=== PATIENT | female | born 1990 | race Caucasian/White ===

== ENCOUNTER 2024-04-26 15:31 | Emergency (ER) | payer OTHER, SELFPAY ==
[2024-04-26 15:46] VITALS: BP 143/102; PULSE 73; RESP 16; TEMP 36.6; O2SAT 99
--- NOTE | 2024-04-26 15:57 | ED_ITS ---
HPI - Female Genitourinary General Chief complaint: Vaginal Bleeding Stated complaint: OB told to come for emergent d&c Focused HPI: 33-year-old female presents to the emergency department for dysfunctional uterine bleeding for 35 days. Patient has been constantly bleeding for 35 days. She has been following with Dr. Louie and was planning to schedule an outpatient D and C. patient states today she bled through 5 tampons in 2 hours and has been passing quarter-size clots. She contacted Dr. Louie's office and was advised to come to the ED for admission for a D&C. She is reporting some lower abdominal cramping but denies chest pain or shortness of breath, fever, dysuria hematuria, vaginal discharge or concern for STDs. She is reporting some lightheadedness when going from sitting to standing position. No history of bleeding dyscrasias. She is not anticoagulated. GENERAL: Well-appearing, well-nourished, and in no acute distress. HEAD: Normocephalic, atraumatic. CHEST: Clear to auscultation. ?No respiratory distress. HEART: Regular rate and rhythm.? NEURO: ?Alert and oriented x3. Patient screened in triage and initial orders placed.? ?Additional care and disposition to be based upon?diagnostic testing and treatment. Related Data Home Medications ?Medication ?Instructions ?Recorded ?Confirmed ?Last Taken ?Type drospirenone 3 mg-estetrol 14.2 mg 1 tablet PO DAILY 04/30/24 05/01/24 04/30/24 History (28) tablet (Nextstellis) Allergies Allergy/AdvReac Type Severity Reaction Status Date / Time No Known Allergies Allergy Verified 05/01/24 12:15 [facility] Past Medical History Medical History (Updated 05/03/24 @ 20:35 by Brandy Harrington PA-C) Overweight Family History Family History Mother Family history of attention deficit hyperactivity disorder (ADHD) Sibling Family history of attention deficit hyperactivity disorder (ADHD) Social History Social History Smoking status: Never smoker Alcohol intake: current Drinks per week: 1 Living arrangements: with family Additional living arrangements comments: SPOUSE AND 2 CHILDREN Spiritual care concerns: No Course Vital Signs Vital signs: Vital Signs Temperature 98 F 04/26/24 15:46 Pulse Rate 73 04/26/24 15:46 Respiratory Rate 16 04/26/24 15:46 Blood Pressure 143/102 H 04/26/24 15:46 Pulse Oximetry 99 04/26/24 15:46 Temperature 98 F 04/26/24 15:46 Pulse Rate 73 04/26/24 15:46 Respiratory Rate 16 04/26/24 15:46 Blood Pressure 143/102 H 04/26/24 15:46 Pulse Oximetry 99 04/26/24 15:46 Discharge Plan Discharge Clinical Impression: Dysfunctional uterine bleeding Patient Disposition: Elopement After Seen by Prov Condition: Stable Patient Language: Turkmen Prescriptions: No Action Nextstellis 3 mg- 14.2 mg (28) tablet 1 tablet PO DAILY ibuprofen 600 mg tablet 600 mg PO Q6H PRN (Reason: cramps) Qty: 30 0RF oxycodone-acetaminophen [Percocet] 5-325 mg tablet 1 tablet PO Q6H PRN (Reason: pain) Qty: 15 0RF Follow-up/Referrals: PHYSICIAN NOT ON STAFF,NONSTAFF [Primary Care Provider] -
== END 2024-04-26 18:00 | disposition left against medical advice (07) ==
PROVIDERS: Emergency Provider Physician Assistant
DX: N93.9 Abnormal uterine and vaginal bleeding, unspecified (principal); E66.3 Overweight; Z68.29 Body mass index [BMI] 29.0-29.9, adult
CPT/HCPCS: 99281

== ENCOUNTER 2024-04-27 14:31 | Emergency (ER) | payer BC, OTHER, SELFPAY ==
[2024-04-27 17:00] VITALS: BP 144/97; PULSE 76; RESP 18; TEMP 36.3; O2SAT 100
[2024-04-27 18:14] VITALS: BP 143/88; PULSE 77; RESP 16; O2SAT 99
[2024-04-27 18:23] LABS: Basophils Absolute Auto 0.1 K/mm3 (0.0-0.1); Basophils Percent Auto 0.8 % (0.2-1.2); Eosinophils Absolute Auto 0.1 K/mm3 (0-0.3); Eosinophils Percent Auto 0.7 % (0-4.4); Hematocrit 38.8 % (37.0-47.0); Hemoglobin 13.6 g/dL (12.0-15.0); Immature Granulocyte Absolute 0.03 K/mm3 (0.00-0.031); Immature Granulocyte Percent A 0.3 % (0-0.5); Lymphocytes Absolute Auto 3.34 K/mm3 (0.9-3.2); Lymphocytes Percent Auto 34.8 % (18.3-44.2); Mean Corpuscular HGB Conc 35.1 g/dl (32-36); Mean Corpuscular Hemoglobin 31.9 pg (26-34); Mean Corpuscular Volume 90.9 fl (80-100); Mean Platelet Volume 9.3 fl (7.4-10.4); Monocytes Absolute Auto 0.6 K/mm3 (0.1-0.6); Neutrophils Absolute Auto 5.5 K/mm3 (1.3-6.7); Neutrophils Percent Auto 57.4 % (45.5-73.1); Platelet Count Result 292 k/mm3 (150-375); Red Blood Count 4.27 M/mm3 (4.2-5.4); White Blood Count 9.6 K/mm3 (4.5-10.0)
[2024-04-27 18:34] LABS: Alanine Aminotransferase 30 U/L (6-35); Albumin Level 4.7 g/dL (3.5-5.1); Alkaline Phosphatase 59 U/L (38-126); Anion Gap 4 mmol/L (4-12); Aspartate Amino Transferase 28 U/L (14-36); Bilirubin,Total 1.7 mg/dL (0.2-1.3); Blood Urea Nitrogen 16 mg/dL (7-17); Calcium 9.4 mg/dL (8.4-10.2); Carbon Dioxide 25 mmol/L (22-30); Chloride 109 mmol/L (98-107); Estimated Glomerular Filt Rate > 60; Glucose 103 mg/dL (65-110); Potassium 3.7 mmol/L (3.4-5.0); Sodium 138 mmol/L (137-145)
[2024-04-27 18:45] LABS: INR 0.9; Prothrombin Time 12.6 Seconds (11.1-14.7)
[2024-04-27 18:46] LABS: Partial Thromboplastin Time 25.9 Seconds (22.3-36.8)
--- NOTE | 2024-04-27 19:11 | ED_ITS ---
HPI - General Adult General Chief complaint: Vaginal Bleeding Stated complaint: vag bleed Time Seen by Provider: 04/27/24 17:53 Source: patient Mode of arrival: ambulatory Limitations: no limitations History of Present Illness HPI narrative: Patient is a 33 y/o female who presents to the ED with c/o vaginal bleeding. Patient reports she has been bleeding vaginally a nonstop for the past 35 days. She has been seeing Dr. Louie for this. Had IUD removed, now on oral BCP. Bleeding has been intermittently heavy. Came to the ED last night as she states she filled 5 tampons in 1 hour. Bleeding improved in the waiting room, left after initial MSE. Today began feeling slightly dizzy/lightheaded, called Dr. Louie again and was referred back to the ED for further evaluation. Reports intermittent lower abdominal cramping, denies significant pain currently. Is supposed to undergo D&C sometime next week. Related Data Allergies Allergy/AdvReac Type Severity Reaction Status Date / Time No Known Allergies Allergy Verified 04/27/24 18:09 Review of Systems 2 Review of Systems: All systems reviewed & are unremarkable except as noted in HPI. All systems reviewed & are unremarkable except as noted in HPI and below PMFSH Family History Family History Mother Family history of attention deficit hyperactivity disorder (ADHD) Sibling Family history of attention deficit hyperactivity disorder (ADHD) Social History Social History Smoking status: Never smoker Alcohol intake: current Exam 2 Narrative: GENERAL: Well appearing, well-nourished, non-toxic, in no acute distress. HEAD: Normocephalic, atraumatic. RESPIRATORY: Airway patent, respirations nonlabored. CARDIOVASCULAR: Regular rate and rhythm ABDOMINAL: Soft, nontender, nondistended. Normoactive BS. PELVIC: Normal external genitalia. Several small pea-sized clots noted in vaginal vault. Very mild vaginal bleeding. No evidence of hemorrhage or pooling of fluid. Normal appearing cervix. MUSCULOSKELETAL: Moves all extremities. No gross deformities. SKIN: Warm, dry, normal color. NEURO: A&O X3. Speech clear. Cranial nerves II-XII grossly intact. Steady gait. No ataxic movements. No focal deficits. PSYCHIATRIC: Appropriate mood and affect. Normal interaction. Course Vital Signs Vital signs: Vital Signs Temperature 97.4 F L 04/27/24 17:00 Pulse Rate 76 04/27/24 17:00 Respiratory Rate 18 04/27/24 17:00 Blood Pressure 144/97 H 04/27/24 17:00 Pulse Oximetry 100 04/27/24 17:00 Temperature 97.4 F L 04/27/24 17:00 Pulse Rate 77 04/27/24 18:14 Respiratory Rate 16 04/27/24 18:14 Blood Pressure 143/88 H 04/27/24 18:14 Pulse Oximetry 99 04/27/24 18:14 Medical Decision Making MDM Narrative Medical decision making narrative: Patient presented to ED with 35 day history of vaginal bleeding. Seeing OBGYN, supposed to have D&C next week. Vitals are stable upon arrival. Patient is in no acute distress. Appears hemodynamically stable. Laboratory studies are reassuring. Hemoglobin is stable at 13.6. Pelvic exam was performed and without evidence of hemorrhage. Some small clots noted. Discussed case with Dr. Louie, OBGYN, advised to start oral TXA 2 650mg tabs TID X5d, take control pill once per day, and call office on Monday to schedule D&C next week. Patient is in agreement with this plan. Feels comfortable discharge home. Discussed strict return precautions including worsening symptoms. She agrees with plan. Discharged in stable condition. Medical Records Medical records reviewed: Yes I reviewed the external patient's medical records. Vital Signs Vital Signs: Vital Signs Temperature 97.4 F L 04/27/24 17:00 Pulse Rate 76 04/27/24 17:00 Respiratory Rate 18 04/27/24 17:00 Blood Pressure 144/97 H 04/27/24 17:00 Pulse Oximetry 100 04/27/24 17:00 Temperature 97.4 F L 04/27/24 17:00 Pulse Rate 77 04/27/24 18:14 Respiratory Rate 16 04/27/24 18:14 Blood Pressure 143/88 H 04/27/24 18:14 Pulse Oximetry 99 04/27/24 18:14 Lab Data Lab results reviewed: Yes I reviewed the patient's lab results. 04/27/24 18:17 04/27/24 18:17 Labs: Lab Results 04/27/24 Range/Units 18:17 WBC 9.6 (4.5-10.0) K/mm3 RBC 4.27 (4.2-5.4) M/mm3 Hgb 13.6 (12.0-15.0) g/dL Hct 38.8 (37.0-47.0) % MCV 90.9 (80-100) fl MCH 31.9 (26-34) pg MCHC 35.1 (32-36) g/dl RDW 12.0 (11.5-14.5) % Plt Count 292 (150-375) k/mm3 MPV 9.3 (7.4-10.4) fl Immature Gran % (Auto) 0.3 (0-0.5) % Neut % (Auto) 57.4 (45.5-73.1) % Lymph % (Auto) 34.8 (18.3-44.2) % Routt % (Auto) 6.0 (2.6-8.5) % Eos % (Auto) 0.7 (0-4.4) % Baso % (Auto) 0.8 (0.2-1.2) % Lymph # (Auto) 3.34 H (0.9-3.2) K/mm3 Routt # (Auto) 0.6 (0.1-0.6) K/mm3 Eos # (Auto) 0.1 (0-0.3) K/mm3 Baso # (Auto) 0.1 (0.0-0.1) K/mm3 Abs Immat Gran (auto) 0.03 (0.00-0.031) K/mm3 Absolute Neuts (auto) 5.5 (1.3-6.7) K/mm3 Absolute Nucleated RBC 0.000 (0.0-0.012) K/mm3 Nucleated RBC % 0.0 (0.0-0.2) % PT 12.6 (11.1-14.7) Seconds INR 0.9 APTT 25.9 (22.3-36.8) Seconds Sodium 138 (137-145) mmol/L Potassium 3.7 (3.4-5.0) mmol/L Chloride 109 H (98-107) mmol/L Carbon Dioxide 25 (22-30) mmol/L Anion Gap 4 (4-12) mmol/L BUN 16 (7-17) mg/dL Creatinine 0.90 (0.7-1.0) mg/dL Estim Creat Clear Calc Not Reportable Estimated GFR > 60 (59 - ) Glucose 103 (65-110) mg/dL Calcium 9.4 (8.4-10.2) mg/dL Total Bilirubin 1.7 H (0.2-1.3) mg/dL AST 28 (14-36) U/L ALT 30 (6-35) U/L Alkaline Phosphatase 59 (38-126) U/L Total Protein 8.0 (6.3-8.2) g/dL Albumin 4.7 (3.5-5.1) g/dL Blood Type A Positive Antibody Screen Negative Discharge Plan Discharge Clinical Impression: Dysfunctional uterine bleeding Patient Disposition: Home, Self-Care Condition: Stable Instructions: Antibiotic Form, Abnormal (Dysfunctional) Uterine Bleeding (ED) Additional Instructions: Take TXA 3 times daily as prescribed over next 5 days. Take your oral control pill once per day. Call BUSINESS SERVICES MANAGER office on Monday afternoon (after 12pm) to make appointment for D&C this week. He is aware of your ED visit. Return if you experience worsening or severe bleeding, severe dizziness, passing out, unable to keep down food or drink, or any other symptoms of concern. Patient Language: New Zealander Prescriptions: New tranexamic acid 650 mg tablet 1,300 mg PO TID 5 Days Qty: 30 0RF No Action penicillin V potassium 500 mg tablet 1,000 mg PO Q12H Qty: 40 0RF Follow-up/Referrals: Alex Louie MD [Primary Care Provider] - Time of Disposition: 19:47
[2024-04-27] MEDS: TRANEXAMIC ACID 650 MG 2 EACH PO (20:03)
[2024-04-27 20:08] VITALS: BP 112/80; PULSE 74; RESP 18; O2SAT 99
--- OUTSIDE RECORDS SUMMARY | 2024-05-04 22:24 | XMS_ITS | Encounter Summary ---
Author Organization [facility] Address [address] [place] [address]. [place], [place] [id number] [place] [id number] Care Team Providers Care Cattle Alley Worker Name Role Phone Francisco Polanco Primary Care Provider [phone] Encounter Details Date Type Department Care Team (Latest Contact Info) Description 09/06/2023 Travel Social History Tobacco Use Types Packs/Day Years Used Date Smoking Tobacco: Never Smokeless Tobacco: Never Alcohol Use Standard Drinks/Week Comments Yes 0 (1 standard drink = 0.6 oz pur e alcohol) socially PHQ-2 Answer Date Recorded Patient Health Questionnaire-2 Score 0 07/26/2023 Comments No Sex and Gender Information Value Date Recorded Sex Assigned at Not on file Legal Sex Female 5:49 PM CDT Gender Identity Not on file Sexual Orientation Not on file documented as of this encounter Plan of Treatment Not on file documented as of this encounter Visit Diagnoses Not on filedocumented in this encounter Care Teams Cattle Alley Worker Relationship Specialty [place] [address] [place] [address] PCP - General Physician Purchasing Officer Medical 07/19/23 documented as of this encounter
--- OUTSIDE RECORDS SUMMARY | 2024-05-04 22:24 | XMS_ITS | Encounter Summary ---
Author Organization [facility] Address [address] [place] [address]. [place] [address] [place] [address] Care Team Providers Care Post Anesthesia Care Unit Nurse Name Role Phone Francisco Polanco Primary Care Provider [phone] Reason for Visit * Reason Comments Cough X 1 week, throat shaq t last night from coughing-nothing today, poor appetite Encounter Details Date Type Department Care Team (Late st Contact Info) Description 03/27/2024 8:20 AM HOUSE WIRER Office Visit [facility] Internal Medicine [facility] [id number] [place] [id number] [place] [id number] [place] [address] Cough (X 1 week, throat hurt last night from coughing-nothing today, poor appetite) Social History Tobacco Use Types Packs/Day Years Used Date Smoking Tobacco: Never Passive Smoke Exposure: Never Smokeless Tobacco: Never Tobacco Cessation:Counseling Given: Not Answered Alcohol Use Standard Drinks/Week Comments Yes 0 (1 standard drink = 0.6 oz pur e alcohol) socially PHQ-2 Answer Date Recorded Patient Health Questionnaire-2 Score 0 07/26/2023 Comments No Sex and Gender Information Value Date Recorded Sex Assigned at Not on file Legal Sex Female 5:49 PM CDT Gender Identity Not on file Sexual Orientation Not on file documented as of this encounter Last Filed Vital Signs Vital Sign Reading Time Taken Comments Blood Pressure 133/89 03/27/2024 8:21 AM HOUSE WIRER Pulse 82 03/27/2024 8:21 AM HOUSE WIRER Temperature 36.5 ??C (97.7 ??F) 03/27/2024 8:21 AM CS T Respiratory Rate 20 03/27/2024 8:21 AM HOUSE WIRER Oxygen Saturation 97% 03/27/2024 8:21 AM HOUSE WIRER Inhaled Oxygen Concentration - - Weight 74.8 kg (165 lb) 03/27/2024 8:21 AM HOUSE WIRER Height 160 cm (5' 3 ) 03/27/2024 8:21 AM HOUSE WIRER Body Mass Index 29.23 03/27/2024 8:21 AM HOUSE WIRER documented in this encounter Patient Instructions * Attachments The following attachments cannot be sent through Care Everywhere. * Acute bronchitis ([place]ian) * Serous Otitis Media Discharge Instructions ([place]ian) documented in this encounter Progress Notes * ABDIRAHMAN Haynes - 03/27/2024 8:20 AM CST Images from the original note were not included. _ Reason for Visit: Cough (X 1 week, throat hurt last night from coughing-nothing today, poor appetite) ears History of Present Illness: HPI Suad Somers is a 33-year-old female here for patient or evaluation through the walk-in clinic for symptoms of upper respiratory infection to include nasal congestion, sore throat, and headache. Patient denies symptoms of visual disturbance or vomiting. Patient has not noticed a fever. Patient has a persistent dry cough with wheezing. Patient denies shortness of breath. Patient has not had loose stools. Patient has been symptomatic for 7 days and is not improving with symptoms. ROS: Review of Systems Feeling ill. Denies vision or hearing problems. Denies dysphagia, heartburn or indigestion. No dyspnea or chest pain on exertion. No nausea, abdominal pain, change in bowel habits, black or bloody stools. No urinary tract symptoms. No muscle or joint aches or pains. No foot or leg edema. No numbness, tingling,or weakness. No anxiety or depressive symptoms, Sleeping well. No significant weight gain or loss. Positive fatigue. Medications: Outpatient Medications Marked as Taking for the 03/27/24 encounter (Office Visit) with ABDIRAHMAN Haynes Medication Sig Dispense Refill azithromycin (ZITHROMAX Z-MILLA) 250 MG tablet Take 2 tablets by mouth on day one then 1 daily for four days. 6 tablet 0 benzonatate (TESSALON PERLES) 100 MG capsule Take 1 capsule (100 mg total) by mouth 3 (three) timesdaily as needed for Cough. 20 capsule 0 Review of patient's allergies indicates: No Known Allergies Past Medical History: Diagnosis Date ADHD (attention deficit hyperactivity disorder) History reviewed. No pertinent surgical history. Social History Tobacco Use Smoking status: Never Passive exposure: Never Smokeless tobacco: Never Vaping Use Vaping status: Never Used Substance Use Topics Alcohol use: Yes Comment: socially Drug use: Never Family History Problem Relation Name Age of Onset Hypertension Mother Hyperlipidemia Father Dementia Maternal Grandmother Dementia Paternal Grandmother Family Status Relation Name Status Mother Alive Father Alive MGM (Not Specified) PGM (Not Specified) No partnership data on file Physical Exam Constitutional: Patient is oriented to person, place, and time. Patient appears well-developed and well-nourished. HENT: Right Ear: External ear normal. Left Ear: External ear normal. TMs reveal air-fluid is to be present in both eardrums. Head: Normocephalic. No frontal sinus tenderness Nose: Nose normal. Turbinates are swollen Mouth/Throat: Oropharynx is clear and moist. Positive postnasal drainage Eyes: Pupils are equal, round, and reactive to light. Neck: No JVD present. No thyromegaly present. No nuchal rigidity Cardiovascular: Normal rate, regular rhythm, normal heart sounds and intact distal pulses. No murmur heard. Pulmonary/Chest: No respiratory distress. Patient has no wheezes. Patient has no rales. Patient exhibits no tenderness. Scattered rhonchi is noted throughout. Abdominal: Patient exhibits no distension and no mass. There is no tenderness. There is no rebound and no guarding. Musculoskeletal: Normal range of motion. Patient exhibits no edema, tenderness or deformity. Lymphadenopathy: Patient has positive cervical adenopathy. Neurological: Patient is alert and oriented to person, place, and time. Skin: No rash noted. No erythema. Psychiatric: Patient has a normal mood and affect. The behavior is normal. Thought content normal. No data to display Vitals: 03/27/24 0821 Patient Position: Sitting BP Location: Left arm Cuff size: Adult Long BP: 133/89 Pulse: 82 Body mass index is 29.23 kg/m??. Assessment and Plan Encounter Diagnose(s) ICD-10-CM SNOMED CT(R) 1. Non-recurrent acute serous otitis media of both ears H65.03 ACUTE NON- SUPPURATIVE SEROUS OTITIS MEDIA azithromycin (ZITHROMAX Z-MILLA) 250 MG tablet 2. Bronchitis J40 BRONCHITIS azithromycin (ZITHROMAX Z-MILLA) 250 MG tablet benzonatate (TESSALON PERLES) 100 MG capsule Orders Placed This Encounter azithromycin (ZITHROMAX Z-MILLA) 250 MG tablet benzonatate (TESSALON PERLES) 100 MG capsule Patient was told to push liquids and get lots of rest. Patient was told to use Tylenol for fever. Patient was told that if symptoms do not improve to utilize the emergency room, call their PCP, or follow back up with the walk-in clinic. If patient needs any additional time off not discussed and spelled out in a work release at this office visit they will need to contact the PCP or be seen in the walk in clinic. Patient should follow annual wellness exams recommended for age and sex of patient. Items to consider but not limited included yearly annual fasting labs, colonscopy or cologuard when indicated. PSA and prostate for males. Mammogram and female exam for females, Portions of this note were dictated using Zenverge speech recognition software. Occasional wrong wordor sound-alike substitutions may have occurred due to the inherent limitations of voice recognition software. Please read the chart carefully and recognize, using context, where the substitutions may have occurred. [place] PA-C evaluated and Dr. Ana Wagner reviewed and agrees with plan. Cosigned by Ana Wagner MD at 03/28/2024 9:38 PM HOUSE WIRER E WIRER E WIRER documented in this encounter Plan of Treatment Not on file documented as of this encounter Visit Diagnoses Diagnosis Non-recurrent acute serous otitis media of both ears- Primary Bronchitis Bronchitis, not specified as acute or chronic documented in this encounter Care Teams Post Anesthesia Care Unit Nurse Relationship Specialty [place] [address] [place] [address] PCP - General Physician County Program Technician Medical 07/19/23 documented as of this encounter
--- OUTSIDE RECORDS SUMMARY | 2024-05-04 22:24 | XMS_ITS | Encounter Summary ---
Author Organization [facility] Address [address] [place] [address]. [place], [place] [address] [place] [address] Care Team Providers Care Business Enterprise Officer Name Role Phone Francisco Polanco Primary Care Provider [phone] Encounter Details Date Type Department Care Team (Latest Contact Info) Description 08/23/2023 Travel Social History Tobacco Use Types Packs/Day [...] on filedocumented in this encounter Care Teams Business Enterprise Officer Relationship Specialty [place] [address] [place] [address] PCP - General Physician Agronomy Professor Medical 07/19/23 documented as of this encounter
--- OUTSIDE RECORDS SUMMARY | 2024-05-04 22:24 | XMS_ITS | Encounter Summary ---
Author Organization [facility] Address [facility]. [place], [place] [address] [place] [address] Care Team Providers Care Chief Wheelage Clerk Name Role Phone Francisco Polanco Primary Care Provider [phone] Reason for Visit * Reason Comments Knee Pain * Physical Medicine (Routine) - Pending Review Specialty Diagnoses / Procedures Referred By Cortez t Referred To Contact PHYSICAL THERAPY Diagnoses Bilateral chronic knee pain Procedures OFFICE/OUTPATIENT NEW LOW MDM 30-44 MINUTES OFFICE/OUTPT VISIT,NEW,LEVL IV OFFICE/OUTPT VISIT,NEW,LEVL V OFFICE/OUTPT VISIT,EST,LEVL III OFFICE/OUTPT VISIT,EST,LEVL IV OFFICE/OUTPT VISIT,[place] [address] [place] [address] Phone: tel: fax: [facility] [address] [place] [address] Phone: tel: fax: Referral ID Status Reason Start Date Expiration Date Visits Requested Visits Authorized [id number] Pending Review Physical Therapy 07/26/2023 08/24/2024 60 60 Encounter Details Date Type Department Care Team (Latest Contact Info) Description 08/30/2023 1:45 PM CDT - 08/30/2023 11:59 PM CDT Hospital Encounter [facility] [address] [place], [place] [id number] [place] [address] [place] [address] [place] [address] [place] [address] Knee Pain Discharge Disposition: Home or Self Care (Routine Discharge) Social History Tobacco Use Types Packs/Day Years [...] on file documented as of this encounter Medications at Time of Discharge fluticasone propionate (FLONASE) 50 MCG/ACT nasal sprayIndications:N on-recurrent acute serous otitis media of left ear 1 spray by Nasal route daily. 16 g 02/02/2023 documented as of this encounter Progress Notes * Christy Roberson, PT - 08/30/2023 1:45 PM CDT Physical Therapy Visit Note: Patient Name: Suad Somers Diagnosis: Chronic pain of both knees (primary encounter diagnosis) SUBJECTIVE Therapy Visit Start Time: 1348 Stop Time: 1431 Time Calculation (min): 43 min Treatment Day: 7 Total Approved Visits: ins 60 / PT POC up to 12 Therapy Plan of Care: 2x week for 4-6 weeks Current Therapy Orders: eval and rx Diagnosis: Bilateral chronic knee pain (M25.561, M25.562, G89.29 (ICD-10-CM)) Referring Provider: ABDIRAHMAN Vela Subjective Note: States her knees are not horrible. States her R knee is bothering her today. States the L only seems to bother her when doing the steps. Response to prior treatment: muscles were sore, but not painful Compliance to Home Program: compliant Reported Falls since last visit: no Medications changes since last visit : no Pain Current Location of Pain: R knee Current Pain Level: 5-6/10 OBJECTIVE Treatment provided today: Therapeutic Exercise - 83700 Number of Minutes - 50874: 43 Cardio Equipment: Octane, S2, L3 x 5' - subjective info Exercise: 3 eccentric step downs x10 tolerable pain distal knee Exercise: 4 step ups x 12 B Exercise: TRX squats x 10 - vc to ER/abd LEs and sit back into squat Exercise: slant board L4 x 1' Exercise: TKE teal strap x 15 B Exercise: SL Abd x 15 B Exercise: SL hip abd x10 Exercise: box steps with red band at ankles x 10 each direction Exercise: vboard BAL x 1' each Exercise: prone with knees flexed and pushing feet together and then lifting LEs for flut activation x 10 Exercise: hooklying iso ab with hip flexion x 10 B Exercise: patient instructed in k-tape in horseshoe pattern to B knees during treatment - PT applied to L knee and patient applied to R Home Exercise Program Current Home Exercise Program: continue Education Was Education Provided: Yes Topic: ther ex, k-tape, knee positioning Recipient: Patient Method: Demonstration, Verbal, Return Demonstration Response: Asked questions, Demonstrates adequately, Verbalized understanding Barriers: None ASSESSMENT Assessment Note: Suad was able to perform ther ex with less c/o pain with ane ex in squat position. She was instructed in k-tape for home with patient demonstrating good technique. Response to Treatment : felt ok Goal Progression: ongoing Continue on Functional Deficit of: B knee pain limiting functional activities PLAN Plan Next Visit Plan: Continue with progression of PT per POC Total Time Total Time in Minutes: 43 Timed Code Treatment Minutes : 43 documented in this encounter Plan of Treatment Not on file documented as of this encounter Visit Diagnoses Diagnosis Chronic pain of both knees- Primary documented in this encounter Care Teams Chief Wheelage Clerk Relationship Specialty [place] [address] [place] [address] PCP - General Physician Small Animal Veterinarian Medical 07/19/23 documented as of this encounter
--- OUTSIDE RECORDS SUMMARY | 2024-05-04 22:24 | XMS_ITS | Encounter Summary ---
Author Organization [facility] Address Count includes the [facility]. [place], [place] [address] [place] [address] Care Team Providers Care Director Occupational Name Role Phone Francisco Polanco Primary Care Provider [phone] Reason for Visit * Reason Comments Knee Pain * Physical Medicine (Routine) - Pending Review Specialty Diagnoses / Procedures Referred By Cortez t Referred To Contact PHYSICAL THERAPY Diagnoses Bilateral chronic knee pain Procedures OFFICE/OUTPATIENT NEW LOW MDM 30-44 MINUTES OFFICE/OUTPT VISIT,NEW,LEVL IV OFFICE/OUTPT VISIT,NEW,LEVL V OFFICE/OUTPT VISIT,EST,LEVL III OFFICE/OUTPT VISIT,EST,LEVL IV OFFICE/OUTPT VISIT,EST,[place] [address] [place] [address] Phone: tel: fax: [facility] [address] [place] [address] Phone: tel: fax: Referral ID Status Reason Start Date Expiration Date Visits Requested Visits Authorized [id number] Pending Review Physical Therapy 07/26/2023 08/24/2024 60 60 Encounter Details Date Type Department Care Team (Latest Contact Info) Description 08/23/2023 12:47 PM CDT - 08/23/2023 11:59 PM CDT Hospital Encounter [facility] [address] [place], [place] [id number] [place] [address] [place] [address] [place] [address] [place] [address] Knee Pain Discharge Disposition: Home or Self [...] Progress Notes * Christy Roberson, PT - 08/23/2023 1:00 PM CDT Physical Therapy Visit Note: Patient Name: Suad Somers Diagnosis: Chronic pain of both knees (primary encounter diagnosis) SUBJECTIVE Therapy Visit Start Time: 1259 Stop Time: 1343 Time Calculation (min): 44 min Treatment Day: 6 Total Approved Visits: ins 60 / PT POC up to 12 Therapy Plan of Care: 2x week for 4-6 weeks Current Therapy Orders: eval and rx Diagnosis: Bilateral chronic knee pain (M25.561, M25.562, G89.29 (ICD-10-CM)) Referring Provider: ABDIRAHMAN Vela Subjective Note: Patient states her knees are not too bad. States with last PT session her R knee hurt pretty bad and still hurts a little bit today. States steps still hurt to do. States she has been trying todo mini-squats now Response to prior treatment: had pain in R knee rest of day and night Compliance to Home Program: compliant Reported Falls since last visit: no Medications changes since last visit : no Pain Current Location of Pain: R knee - down center of knee OBJECTIVE Treatment provided today: Therapeutic Exercise - 78815 Number of Minutes - 29057: 44 Cardio Equipment: Octane, S2, L3 x 5' Exercise: home - retro gait, monster walking, and sidestepping with L2 band around ankles 20' x 2 ea Exercise: #3 eccentric step downs x10 tolerable pain distal knee Exercise: 4 step ups x 12 B Exercise: TRX squats x 10 - vc to ER/abd LEs and sit back into squat Exercise: slant board L4 x 1' Exercise: TKE teal strap x 20 B Exercise: 3 way kicks x 10 B - with red band about ankles Exercise: SL hip abd x10 Exercise: vboard BAL x 1' each Exercise: knee flexion stretch with foot on 8 step and other knee on foam on floor 30 x 2 each Exercise: k-tape in horseshoe pattern to B knees during treatment Home Exercise Program Current Home Exercise Program: discussed Education Was Education Provided: Yes Topic: ther ex, knee positioning with squats Recipient: Patient Method: Demonstration, Verbal, Return Demonstration, Written Response: Demonstrates adequately, Verbalized understanding Barriers: None ASSESSMENT Assessment Note: Patient was able to perform ther ex with only mild c/o increased pain in R knee. K-tape was applied about 1/[address] through treatment and patient then able to perform TRX squats without c/o increased pain. She was able to lower a farther distance with eccentric touchdowns from 3 step with lessened pain compared to 1st attempt. Response to Treatment : felt ok Goal Progression: ongoing Continue on Functional Deficit of: B knee pain limiting functional activities PLAN Plan Next Visit Plan: Continue with progression of PT per POC Total Time Total Time in Minutes: 44 Timed Code Treatment Minutes : 44 documented in this encounter Plan of Treatment Not on file documented as of this encounter Visit Diagnoses Diagnosis Chronic pain of both knees- Primary documented in this encounter Care Teams Director Occupational Relationship Specialty Start [place] [address] [place] [address] PCP - General Physician Pedicab Driver Medical 07/19/23 documented as of this encounter
--- OUTSIDE RECORDS SUMMARY | 2024-05-04 22:24 | XMS_ITS | Encounter Summary ---
Author Organization [facility] Address [address] [place] [address]. [place], [place] [address] [place] [address] Care Team Providers Care Airplane Engineer Name Role Phone Francisco Polanco Primary Care Provider [phone] Encounter Details Date Type Department Care Team (Latest Contact Info) Description 03/27/2024 Travel Social History Tobacco Use Types Packs/Day Years Used Date Smoking Tobacco: Never Passive Smoke Exposure: Never Smokeless Tobacco: Never Alcohol Use Standard [...] on filedocumented in this encounter Care Teams Airplane Engineer Relationship Specialty [place] [address] [place] [address] PCP - General Physician Dairy Equipment Installer Medical 07/19/23 documented as of this encounter
--- OUTSIDE RECORDS SUMMARY | 2024-05-04 22:24 | XMS_ITS | Encounter Summary ---
Author Organization [facility] Address [address] [place] [address]. [place], [place] [address] [place] [address] Care Team Providers Care Seed Tester Name Role Phone Francisco Polanco Primary Care Provider [phone] Encounter Details Date Type Department Care Team (Latest Contact Info) Description 08/30/2023 Travel Social History Tobacco Use Types Packs/Day [...] on filedocumented in this encounter Care Teams Seed Tester Relationship Specialty [place] [address] [place] [address] PCP - General Physician Roll Trucker Medical 07/19/23 documented as of this encounter
--- OUTSIDE RECORDS SUMMARY | 2024-05-04 22:24 | XMS_ITS | Encounter Summary ---
Author Organization [facility] Address [facility]. [place], [place] [address] [place] [address] Care Team Providers Care Crane Hooker Name Role Phone Francisco Polanco Primary Care Provider [phone] Reason for Visit * Reason Comments Knee Pain * Physical Medicine (Routine) - Pending Review Specialty Diagnoses / Procedures Referred By Cortez t Referred To Contact PHYSICAL THERAPY Diagnoses Bilateral chronic knee pain Procedures OFFICE/OUTPATIENT NEW LOW MDM 30-44 MINUTES OFFICE/OUTPT VISIT,NEW,LEVL IV OFFICE/OUTPT VISIT,NEW,LEVL V OFFICE/OUTPT VISIT,EST,LEVL III OFFICE/OUTPT VISIT,EST,LEVL IV OFFICE/OUTPT VISIT,[place] [address] [place] [address] Phone: tel: fax: [facility] [address] [place] [address] Phone: tel: fax: Referral ID Status Reason Start Date Expiration Date Visits Requested Visits Authorized [id number] Pending Review Physical Therapy 07/26/2023 08/24/2024 60 60 Encounter Details Date Type Department Care Team (Latest Contact Info) Description 09/06/2023 10:40 AM CDT - 09/06/2023 11:59 PM CDT Hospital Encounter [facility] [address] [place], [place] [id number] [place] [address] [place] [address] [place] [address] [place] [address] Knee Pain Discharge Disposition: Home or Self [...] as of this encounter Progress Notes * Jennifer Roberson, PT - 09/06/2023 10:45 AM CDT Physical Therapy Visit Note: Patient Name: Suad Somers Diagnosis: Chronic pain of both knees (primary encounter diagnosis) SUBJECTIVE Therapy Visit Start Time: 1045 Stop Time: 1134 Time Calculation (min): 49 min Treatment Day: 10 Total Approved Visits: ins 60 / PT POC up to 12 Therapy Plan of Care: 2x week for 4-6 weeks Current Therapy Orders: eval and rx Diagnosis: Bilateral chronic knee pain (M25.561, M25.562, G89.29 (ICD-10-CM)) Referring Provider: ABDIRAHMAN Vela Subjective Note: Patient states her knees have been not bad. States they are a little sore today, but had PT yesterday and did exercise class last night also. Patient states she did tape her knees before her exercise class and felt that helped. Response to prior treatment: sore Reported Falls since last visit: no Medications changes since last visit : no OBJECTIVE Treatment provided today: Objective Functional Scale Score: LEFS = 71.25% functional ability Objective Measurement: see MD letter for strength and flexibility measurements Therapeutic Exercise - 84694 Number of Minutes - 30316: 49 Cardio Equipment: Octane, S2, L3 x 5' - subjective info Exercise: 3 eccentric step downs x12 no pain Exercise: 5 step ups x 10 B Exercise: TRX squats x 10 with Green band around the thighs- vc to ER/abd LEs and sit back into squat Exercise: slant board L4 x 1' Exercise: TKE blue strap x 10 B Exercise: box steps with green band at ankles x 10 each direction Exercise: vboard BAL x 1' each Exercise: prone with knees flexed and pushing feet together and then lifting LEs for glut activation x 15 Exercise: hooklying iso ab with hip flexion x 10 B Exercise: knee flex stretch on 12 step 30 x 1 B Exercise: walking lunges with small range 12' x 2 - focus on knee positioning Exercise: -k-tape in horseshoe pattern B Home Exercise Program Current Home Exercise Program: continue Education Was Education Provided: Yes Topic: ther ex, HEP, k-tape Recipient: Patient Method: Demonstration, Verbal, Return Demonstration Response: Demonstrates adequately, Verbalized understanding Barriers: None ASSESSMENT Assessment Note: Patient has responded well to treatment with improved strength and flexibility and decreased pain . She has a good understanding of her HEP and able to perform k-tape herself as needed. See MD letter Response to Treatment : felt ok Goal Progression: good Continue on Functional Deficit of: B knee pain limiting functional activities PLAN Plan Next Visit Plan: No further PT scheduled. However patient to call and schedule further if has increase in pain. Total Time Total Time in Minutes: 49 Timed Code Treatment Minutes : 49 * Jennifer Roberson PT - 09/06/2023 10:45 AM CDT [facility] [address] [facility] [address] Dept: [phone] Dept Physical Therapy Recertification Patient name: Suad Somers : 1990 Date: 09/06/23 Diagnosis: The encounter diagnosis was Chronic pain of both knees. Referring Provider: Collin Date of reporting period from 08/07/23 to 09/06/23 Visits: 10 Subjective: Patient states her knees have been not bad. States they are a little sore today, but had PT yesterday and did exercise class last night also. Patient states she did tape her knees before her exercise class and felt that helped. Pain Level: 0/10 currently, 4/10 at worst Objective Data: Eval Status (08/07/23) Current Status (09/06/23) Flexibility 90/90 Hamstrings R: -25 90/90 Hamstrings L: -25 Flexibility 90/90 Hamstrings R: -15 90/90 Hamstrings L: -17 HIP STRENGTH Hip Flexion R: 4/5 Hip Flexion L: 4/5 Hip Extension R: 4-/5 Hip Extension L: 4/5 Hip ABDduction R: 4-/5 Hip ABDduction L: 4-/5 Hip Internal Rotation R: 4/5 Hip Internal Rotation L: 4/5 Hip External Rotation R: 4+/5 Hip External Rotation L: 4+/5 Other (Comments): abdominal strength 3+/5 HIP STRENGTH Hip Flexion R: 5/5 Hip Flexion L: 5/5 Hip Extension R: 4/5 Hip Extension L: 4+/5 Hip ABDduction R: 4+/5 Hip ABDduction L: 4+/5 Hip Internal Rotation R: 4+/5 Hip Internal Rotation L: 4+/5 Hip External Rotation R: 4+/5 Hip External Rotation L: 4+/5 Other (Comments): abdominal strength 4-/5 KNEE STRENGTH Knee Flexion R: 5/5 Knee Flexion L: 5/5 Knee Extension R: 4+/5 Knee Extension L: 4+/5 KNEE STRENGTH Knee Flexion R: 5/5 Knee Flexion L: 5/5 Knee Extension R: 5/5 Knee Extension L: 5/5 Goals: Met. Decreased knowledge of how to manage symptoms independently: GOAL: Patient able to perform individualized home exercise program for independent symptom management within 6 weeks. Partially Met. Impaired reciprocal stair negotiation: GOAL: Patient to exhibit Bilateral hip and knee strength to be equal to 5/5 [address] reciprocal [address] negotiation within 6 weeks. Partially Met. Pain affects functional tasks: GOAL: Patient to report reduction of Bilateral knee pain to less than or equal to 2/10, as shown by the visual analog scale, with functional activities of squatting and walking within 6 weeks. Met. Functional/Disability scale shows deficits in activity: GOAL: Patient to score at least 55% onthe LEFS scale to demonstrate improvement in going up/down steps and squatting with ADLs and picking up her child within 6 weeks. Assessment Statement: Suad has made good progress with improved strength and flexibility and decreased pain. She continues to have crepitus on her B knees, but has been able to progress ther ex during her PT treatments with less pain. She has also be able to go to her exercise class and perform increased ex without pain. She improved her score to 71.25% functional ability compared to 41.25% at her initial evaluation. She has been instructed in a HEP which she is independent with at this time. She has also been instructed in k-tape for her B knees for improved patella alignment when going to her exercise class. We have no further PT planned at this time with patient to continue with her HEP independently. However we do have 2 more visits from my original POC and I advised patient if she began having c/o increased pain in the next 3 weeks to call to schedule further visits and will re-assess her status at that time. Recommendations: No further visits scheduled, however patient to call and Therapist: JENNIFER ROBERSON PT Date: 09/06/23 Time: 11:43 AM Patient Name: Suad Somers : 1990 * Jennifer Roberson PT - 09/06/2023 10:45 AM CDT Lower Extremity Functional Scale: Lower Extremity Functional Scale (LEFS) Any of your usual work, housework, or school activities: Little bit of difficulty (3) Your usual hobbies, recreational or sporting activities: Moderate difficulty (2) Getting into or out of the bath.: No difficulty (4) Walking between rooms: Little bit of difficulty (3) Putting on your shoes or socks: No difficulty (4) Squatting: Moderate difficulty (2) Lifting an object, like a bag of groceries from the floor: Little bit of difficulty (3) Performing light activities around your home: Little bit of difficulty (3) Performing heavy activities around your home: Moderate difficulty (2) Getting in or out of a car: Little bit of difficulty (3) Walking 2 blocks: Little bit of difficulty (3) Walking a mile: Little bit of difficulty (3) Going up or down 10 stairs (about 1 flight of steps): Moderate difficulty (2) Standing for 1 hour: Little bit of difficulty (3) Sitting for 1 hour: No difficulty (4) Running on even ground: Little bit of difficulty (3) Running on uneven ground: Moderate difficulty (2) Making sharp turns while running fast: Moderate difficulty (2) Hopping: Moderate difficulty (2) Rolling over in bed: No difficulty (4) Total Score: 57 % of maximal function?? = (LEFS score) / 80 * 100: 71.25 documented in this encounter Plan of Treatment Not on file documented as of this encounter Visit Diagnoses Diagnosis Chronic pain of both knees- Primary documented in this encounter Care Teams Crane Hooker Relationship Specialty [place] [address] [place] [address] PCP - General Physician Grief Counsellor Medical 07/19/23 documented as of this encounter
--- OUTSIDE RECORDS SUMMARY | 2024-05-04 22:24 | XMS_ITS | Encounter Summary ---
Author Organization [facility] Address [facility]. [place], [place] [address] [place] [address] Care Team Providers Care Bone Process Operator Name Role Phone Francisco Polanco Primary Care Provider [phone] Reason for Visit * Reason Comments Knee Pain * Physical Medicine (Routine) - Pending Review Specialty Diagnoses / Procedures Referred By Cortez t Referred To Contact PHYSICAL THERAPY Diagnoses Bilateral chronic knee pain Procedures OFFICE/OUTPATIENT NEW LOW MDM 30-44 MINUTES OFFICE/OUTPT VISIT,NEW,LEVL IV OFFICE/OUTPT VISIT,NEW,LEVL V OFFICE/OUTPT VISIT,EST,LEVL III OFFICE/OUTPT VISIT,EST,LEVL IV OFFICE/OUTPT VISIT,EST,[place] [address] [place] [address] Phone: tel: fax: [facility] [address] [place] [address] Phone: tel: fax: Referral ID Status Reason Start Date Expiration Date Visits Requested Visits Authorized [id number] Pending Review Physical Therapy 07/26/2023 08/24/2024 60 60 Encounter Details Date Type Department Care Team (Latest Contact Info) Description 09/05/2023 8:55 AM CDT - 09/05/2023 11:59 PM CDT Hospital Encounter [facility] [address] [place], [place] [id number] [place] [address] [place] [address] Gayathri Katy Tate, SHRUTHI Knee Pain Discharge Disposition: Home or Self [...] as of this encounter Progress Notes * Katy Trinh PTA - 09/05/2023 9:00 AM CDT Physical Therapy Visit Note: Patient Name: Suad Somers Diagnosis: Chronic pain of both knees (primary encounter diagnosis) SUBJECTIVE Therapy Visit Start Time: 857 Stop Time: 935 Time Calculation (min): 38 min Treatment Day: 9 Total Approved Visits: ins 60 / PT POC up to 12 Therapy Plan of Care: 2x week for 4-6 weeks Current Therapy Orders: eval and rx Diagnosis: Bilateral chronic knee pain (M25.561, M25.562, G89.29 (ICD-10-CM)) Referring Provider: ABDIRAHMAN Vela Subjective Note: Applied K-tape herself to her knees. R knee is stiff today and the L knee is ok. Compliance to Home Program: Performed squats and did not have pain afterwards. Reported Falls since last visit: No Medications changes since last visit : No Pain Current Pain Level: No pain OBJECTIVE Treatment provided today: Therapeutic Exercise - 09268 Number of Minutes - 19389: 38 Cardio Equipment: Octane, S2, L3 x 5' - subjective info Exercise: 3 eccentric step downs x12 no pain Exercise: 5 step ups x 12 B Exercise: TRX squats x 10 with Green band around the thighs- vc to ER/abd LEs and sit back into squat Exercise: slant board L4 x 1' Exercise: TKE blue strap x 10 B Exercise: SL Abd x 15 B Exercise: box steps with green band at ankles x 12 each direction Exercise: vboard BAL x 1' each Exercise: prone with knees flexed and pushing feet together and then lifting LEs for flut activation x 15 Exercise: hooklying iso ab with hip flexion x 10 B Exercise: knee flex stretch on 8 step 30 x 1 B Exercise: walking lunges with small range 12' x 2 - focus on knee positioning Exercise: held-k-tape in horseshoe pattern B Education Was Education Provided: Yes Topic: ex technique Recipient: Patient Method: Demonstration, Verbal, Return Demonstration Response: Demonstrates adequately, Verbalized understanding Barriers: None ASSESSMENT Assessment Note: Added resistance to TRX squats and increased resistance to TKE ex in order to improve strength. Good tolerance was demonstrated with the interventions this session. Fatigue noted after each ex.No increased pain noted in the knees. VC required for correct technique on the SL Hip ABD ex. No adverse affects to note post Rx. Response to Treatment : Knees don't hurt Goal Progression: ongoing Continue on Functional Deficit of: B knee pain limiting functional activities PLAN Plan Next Visit Plan: Continue with 3 visits per POC Total Time Total Time in Minutes: 38 Timed Code Treatment Minutes : 38 documented in this encounter Plan of Treatment Not on file documented as of this encounter Visit Diagnoses Diagnosis Chronic pain of both knees- Primary documented in this encounter Care Teams Bone Process Operator Relationship Specialty [place] [address] [place] [address] PCP - General Physician Senior Chemical Engineer Medical 07/19/23 documented as of this encounter
--- OUTSIDE RECORDS SUMMARY | 2024-05-04 22:24 | XMS_ITS | Encounter Summary ---
Author Organization [facility] Address [address] [place] [address]. [place], [place] [address] [place] [address] Care Team Providers Care Medical Social Consultant Name Role Phone Francisco Polanco Primary Care Provider [phone] Encounter Details Date Type Department Care Team (Latest Contact Info) Description 08/21/2023 Travel Social History Tobacco Use Types Packs/Day [...] on filedocumented in this encounter Care Teams Medical Social Consultant Relationship Specialty [place] [address] [place] [address] PCP - General Physician Construction Safety Consultant Medical 07/19/23 documented as of this encounter
--- OUTSIDE RECORDS SUMMARY | 2024-05-04 22:24 | XMS_ITS | Clinical Summary ---
Author Organization [facility] Address [facility]. [place], [place] [address] [place] [address] Care Team Providers Care Cafe Server Name Role Phone Francisco Polanco Primary Care Provider [phone] Allergies No known active allergies Medications fluticasone propionate (FLONASE) 50 MCG/ACT nasal sprayIndication s:Non-recurrent acute serous otitis media of left ear 1 spray by Nasal route daily. 16 g Active Additional Information Patient not taking.Reported on 03/27/2024 Active Problems Problem Noted Date Diagnosed Date Chronic pain of both knees 08/07/2023 Encounters Date Type Department Care Team Description 03/27/2024 8:20 AM SURGICAL SCRUB TECH Office Visit [facility] [address] [address] [place] Cough (X 1 week, throat hurt last night from coughing-nothing today, poor appetite) 03/27/2024 Travel from Last 3 Months Immunizations Name Administration Dates Next Due Influenza (Generic) 02/11/2016 Influenza Adult (Generic) 01/26/2019 MMR (MMRII) 01/07/2016 Tdap (Generic) 09/23/2018,11/19/2015 Family History Medical History Relation Comments Hyperlipidemia Father Dementia Maternal Grandmother Hypertension Mother Dementia Paternal Grandmother Relation Status Comments Father Alive Maternal Grandmother Mother Alive Paternal Grandmother Social History Tobacco Use Types Packs/Day Years [...] on file Sexual Orientation Not on file Last Filed Vital Signs Vital Sign Reading Time Taken Comments Blood Pressure 133/89 03/27/2024 8:21 AM SURGICAL SCRUB TECH Pulse 82 03/27/2024 8:21 AM SURGICAL SCRUB TECH Temperature 36.5 ??C (97.7 ??F) 03/27/2024 8:21 AM CS T Respiratory Rate 20 03/27/2024 8:21 AM SURGICAL SCRUB TECH Oxygen Saturation 97% 03/27/2024 8:21 AM SURGICAL SCRUB TECH Inhaled Oxygen Concentration - - Weight 74.8 kg (165 lb) 03/27/2024 8:21 AM SURGICAL SCRUB TECH Height 160 cm (5' 3 ) 03/27/2024 8:21 AM SURGICAL SCRUB TECH Body Mass Index 29.23 03/27/2024 8:21 AM SURGICAL SCRUB TECH Plan of Treatment Health Maintenance Due Date Last Done Comments Cervical Cancer Screening Pa p Smear (Age 30 to 64) Every 3 Years 1989 Hepatitis B Vaccines (1 of 3 - 19+ 3-dose series) 2008 Cervical Cancer Screening Pa p with HPV Testing (Age 30 to 64) Every 5 Years 08/14/2019 COVID-19 Vaccine (2023-2 5 season) 2023 Influenza Adult (#1) 2024 01/26/2019, 02/11/2016 Annual Physical 07/25/2024 07/26/2023 Cervical Cancer Screening with HPV 07/25/2024 Postponed from 08/13 (Going to Outside Clinic) DTaP, Tdap and Td Vaccines ( 3 - Td or Tdap) 09/23/2028 09/23/2018, 11/19/2015 Hepatitis C 07/25/2053 Postponed from 08/14/2007 (Patient Refused) HPV Vaccines Aged Out No longer eligi ble based on patient's age to complete this topic Meningococcal Vaccine Aged Out No kristel maicol eligible based on patient's age to complete this topic Pneumococcal Vaccine: Pediatrics (0 to 5 Years) and At-Risk Patients (6 to 64 Years) Aged Out No longer eligible b ased on patient's age to complete this topic RSV Immunizations Under 20 Months Aged Out No longer eligible b ased on patient's age to complete this topic Insurance [facility] Care Teams Cafe Server Relationship Specialty [place] [address] [place] [address] PCP - General Physician Connection Worker Medical 07/19/23
--- OUTSIDE RECORDS SUMMARY | 2024-05-04 22:24 | XMS_ITS | Encounter Summary ---
Author Organization [facility] Address [address] [place] [address]. [place], [place] [address] [place] [address] Care Team Providers Care Explosive Technician Name Role Phone Francisco Polanco Primary Care Provider Encounter Details Date Type Department Care Team (Latest Contact Info) Description 09/01/2023 Travel Social History Tobacco Use Types Packs/Day [...] on filedocumented in this encounter Care Teams Explosive Technician Relationship Specialty [place] [address] [place] [address] PCP - General Physician Minister Helper Medical 07/19/23 documented as of this encounter
--- OUTSIDE RECORDS SUMMARY | 2024-05-04 22:24 | XMS_ITS ---
Author Organization [facility] Address [address] [facility] [place] [address] Care Team Providers Care Minute Clerk For Basic Traffic Name Role Phone Unavailable Primary Care Physician Unavailab le Medications Name Start Date Expiration Date SIG Comments Mirena 21 mcg/24 hours (8 yrs) 52 mg intrauterine device 10/11/2022 10/12/[address] place 1 device by intrauterine route once Payers Insurance Name Company Name Plan Name Plan Number Policy Number Policy Group Number Start Date [place] [id number] N/A History of Encounters Visit Date Visit Type Provider 10/11/2022 My-IUD Tele-Med Consult Dr. Ino Tomas MD
--- OUTSIDE RECORDS SUMMARY | 2024-05-04 22:24 | XMS_ITS | Encounter Summary ---
Author Organization [facility] Address [address] [place] [address]. [place], [place] [address] [place] [address] Care Team Providers Care Casting Room Operator Name Role Phone Francisco Polanco Primary Care Provider [phone] Encounter Details Date Type Department Care Team (Latest Contact Info) Description 09/05/2023 Travel Social History Tobacco Use Types Packs/Day [...] on filedocumented in this encounter Care Teams Casting Room Operator Relationship Specialty [place] [address] [place] [address] PCP - General Physician Mobile Home Park Manager Medical 07/19/23 documented as of this encounter
--- OUTSIDE RECORDS SUMMARY | 2024-05-04 22:24 | XMS_ITS | Encounter Summary ---
Author Organization [facility] Address [facility]. [place], [place] [address] [place] [address] Care Team Providers Care Surgical Aides Teacher Name Role Phone Francisco Polanco Primary Care Provider [phone] Reason for Visit * Reason Comments Knee Pain * Physical Medicine (Routine) - Pending Review Specialty Diagnoses / Procedures Referred By Cortez t Referred To Contact PHYSICAL THERAPY Diagnoses Bilateral chronic knee pain Procedures OFFICE/OUTPATIENT NEW LOW MDM 30-44 MINUTES OFFICE/OUTPT VISIT,NEW,LEVL IV OFFICE/OUTPT VISIT,NEW,LEVL V OFFICE/OUTPT VISIT,EST,LEVL III OFFICE/OUTPT VISIT,EST,LEVL IV OFFICE/OUTPT VISIT,EST,[place] [address] [place] [address] Phone: tel: fax: [facility] [address] [place] [address] Phone: tel: fax: Referral ID Status Reason Start Date Expiration Date Visits Requested Visits Authorized [id number] Pending Review Physical Therapy 07/26/2023 08/24/2024 60 60 Encounter Details Date Type Department Care Team (Latest Contact Info) Description 09/01/2023 1:38 PM CDT - 09/01/2023 11:59 PM CDT Hospital Encounter [facility] [address] [place], [place] [id number] [place] [address] [place] [address] [place] [address] [place] [address] Knee Pain Discharge Disposition: Home or Self [...] Progress Notes * Christy Roberson, PT - 09/01/2023 1:45 PM CDT Physical Therapy Visit Note: Patient Name: Suad Somers Diagnosis: Chronic pain of both knees (primary encounter diagnosis) SUBJECTIVE Therapy Visit Start Time: 1341 Stop Time: 1425 Time Calculation (min): 44 min Treatment Day: 8 Total Approved Visits: ins 60 / PT POC up to 12 Therapy Plan of Care: 2x week for 4-6 weeks Current Therapy Orders: eval and rx Diagnosis: Bilateral chronic knee pain (M25.561, M25.562, G89.29 (ICD-10-CM)) Referring Provider: ABDIRAHMAN Vela Subjective Note: States her knees are feeling good today. States she has a little bit of pain, but was able togo up the steps pretty quickly earlier without pain. Response to prior treatment: a good stretched feeling Compliance to Home Program: compliant Reported Falls since last visit: no Medications changes since last visit : no OBJECTIVE Treatment provided today: Therapeutic Exercise - 03228 Number of Minutes - 86774: 44 Cardio Equipment: Octane, S2, L3 x 5' - subjective info Exercise: 3 eccentric step downs x10 tolerable pain distal knee Exercise: 5 step ups x 12 B [...] 2 - focus on knee positioning Exercise: k-tape in horseshoe pattern B Home Exercise Program Current Home Exercise Program: continue Education Was Education Provided: Yes Topic: knee positioning with ther ex, k-tape Recipient: Patient Method: Demonstration, Verbal, Return Demonstration Response: Asked questions, Demonstrates adequately, Verbalized understanding Barriers: None ASSESSMENT Assessment Note: Patient was able to progress to walking lunges with vc for knee positioning initially but then good technique and no significant increase in pain. She is able to tolerate eccentric step downs with less pain now. Response to Treatment : felt good Goal Progression: ongoing Continue on Functional Deficit [...] Primary documented in this encounter Care Teams Surgical Aides Teacher Relationship Specialty [place] [address] [place] [address] PCP - General Physician Hospice Social Worker Medical 07/19/23 documented as of this encounter
--- OUTSIDE RECORDS SUMMARY | 2024-05-04 22:25 | XMS_ITS | Encounter Summary ---
Author Organization [facility] Address [facility]. [place], [place] [address] [place] [address] Care Team Providers Care Tank Processor Name Role Phone Unavailable Primary Care Provider Unavailabl e Encounter Details Date Type Department Care Team (Late st Contact Info) Description 06/19/2013 Abstract [facility] [address], [place] [id number] Mayte Lee MD [address] [place] [address] Social History Tobacco Use Types Packs/Day Years Used Date Smoking Tobacco: Never Assessed Comments Unknown Sex and Gender Information Value Date Recorded Sex Assigned at Not on file Legal Sex Female 5:49 PM CDT Gender Identity Not on file Sexual Orientation Not on file documented as of this encounter Plan of Treatment Not on file documented as of this encounter Visit Diagnoses Diagnosis Screening examination for sexually transmitted disease Screening examination for venereal disease documented in this encounter
--- OUTSIDE RECORDS SUMMARY | 2024-05-04 22:25 | XMS_ITS | Encounter Summary ---
Author Organization [facility] Address [address] [place] [address]. [place], [place] [id number] [place] [address] Care Team Providers Care Wind Instrument Repairer Name Role Phone Francisco Polanco Primary Care Provider Encounter Details Date Type Department Care Team (Latest Contact Info) Description 08/09/2023 Travel Social History Tobacco Use Types Packs/Day [...] on filedocumented in this encounter Care Teams Wind Instrument Repairer Relationship Specialty [place] [address] [place] [address] PCP - General Physician Guest Service Manager Medical 07/19/23 documented as of this encounter
--- OUTSIDE RECORDS SUMMARY | 2024-05-04 22:25 | XMS_ITS | Encounter Summary ---
Author Organization [facility] Address [facility]. [place], [place] [id number] [place] [address] Care Team Providers Care Activity Aid Name Role Phone Francisco Polanco Primary Care Provider [phone] Reason for Visit * Reason Comments Knee Pain * Physical Medicine (Routine) - Pending Review Specialty Diagnoses / Procedures Referred By Cortez t Referred To Contact PHYSICAL THERAPY Diagnoses Bilateral chronic knee pain Procedures OFFICE/OUTPATIENT NEW LOW MDM 30-44 MINUTES OFFICE/OUTPT VISIT,NEW,LEVL IV OFFICE/OUTPT VISIT,NEW,LEVL V OFFICE/OUTPT VISIT,EST,LEVL III OFFICE/OUTPT VISIT,EST,LEVL IV OFFICE/OUTPT VISIT,[place] [address] [place] [address] Phone: tel: fax: [facility] [address] [place] [address] Phone: tel: fax: Referral ID Status Reason Start Date Expiration Date Visits Requested Visits Authorized [id number] Pending Review Physical Therapy 07/26/2023 08/24/2024 60 60 Encounter Details Date Type Department Care Team (Latest Contact Info) Description 08/21/2023 7:11 AM CDT - 08/21/2023 11:59 PM CDT Hospital Encounter [facility] [address] [place], [place] [id number] [place] [address] [place] [address] Gayathri Katy Tate PTA Knee Pain Discharge Disposition: Home or Self [...] of this encounter Progress Notes * Katy Bebeto SHRUTHI Trinh - 08/21/2023 7:30 AM CDT Physical Therapy Visit Note: Patient Name: Suad Somers Diagnosis: Chronic pain of both knees (primary encounter diagnosis) SUBJECTIVE Therapy Visit Start Time: 727 Stop Time: 809 Time Calculation (min): 42 min Treatment Day: 5 Total Approved Visits: ins 60 / PT POC up to 12 Therapy Plan of Care: 2x week for 4-6 weeks Current Therapy Orders: eval and rx Diagnosis: Bilateral chronic knee pain (M25.561, M25.562, G89.29 (ICD-10-CM)) Referring Provider: ABDIRAHMAN Vela Subjective Note: The knees are good. The knees are stiff. The pain is not worse, not really there. The squats are grinding but not pain. The R knee buckled the other day. Response to prior treatment: The medial R knee hurt, put ice that evening. Reported Falls since last visit: No Medications changes since last visit : No Pain Current Location of Pain: B knees Current Pain Level: No, more stiffness OBJECTIVE Treatment provided today: Therapeutic Exercise - 77078 Number of Minutes - 55048: 42 Cardio Equipment: Octane, S2, L3 x 5' Exercise: retro gait, monster walking, and sidestepping with [...] 20 B Exercise: 3 way kicks x 12 B Exercise: SL hip abd x10 Exercise: lumbar ext at wall x 10 Exercise: vboard BAL x 1' each Exercise: next-TG squats L 13 x 10 Exercise: Declined per pt request Home Exercise Program Current Home Exercise Program: Added squats to HEP Education Was Education Provided: Yes Topic: ex technique and HEP Recipient: Patient Method: Demonstration, Verbal, Return Demonstration, Written Response: Demonstrates adequately, Verbalized understanding Barriers: None ASSESSMENT Assessment Note: Added SL hip ABD in order to improve hip strength. Increased reps on step ups in order to improve LE strength. Pt tolerated the Rx fairly well this session. Pt voiced that the knees hurt when going up the steps yesterday. Pt also voiced knee pain during the eccentric step down ex but was ableto complete the ex. Muscle fatigue noted with the interventions. No adverse affects to note post Rx. Goal Progression: ongoing Continue on Functional Deficit of: B knee pain limiting functional activities PLAN Plan Next Visit Plan: Continue with progression of PT per POC Total Time Total Time in Minutes: 42 Timed Code Treatment Minutes : 42 documented in this encounter Plan of Treatment Not on file documented as of this encounter Visit Diagnoses Diagnosis Chronic pain of both knees- Primary documented in this encounter Care Teams Activity Aid Relationship Specialty [place] [address] [place] [address] PCP - General Physician Furnace Mason Medical 07/19/23 documented as of this encounter
--- OUTSIDE RECORDS SUMMARY | 2024-05-04 22:25 | XMS_ITS | Encounter Summary ---
Author Organization [facility] Address [facility]. [place], [place] [address] [place] [address] Care Team Providers Care Equipment Mechanic Name Role Phone Francisco Polanco Primary Care Provider [phone] Reason for Visit * Reason Comments Knee Pain * Physical Medicine (Routine) - Pending Review Specialty Diagnoses / Procedures Referred By Cortez t Referred To Contact PHYSICAL THERAPY Diagnoses Bilateral chronic knee pain Procedures OFFICE/OUTPATIENT NEW LOW MDM 30-44 MINUTES OFFICE/OUTPT VISIT,NEW,LEVL IV OFFICE/OUTPT VISIT,NEW,LEVL V OFFICE/OUTPT VISIT,EST,LEVL III OFFICE/OUTPT VISIT,EST,LEVL IV OFFICE/OUTPT VISIT,EST,[place] [address] [place] [address] Phone: tel: fax: [facility] [address] [place] [address] Phone: tel: fax: Referral ID Status Reason Start Date Expiration Date Visits Requested Visits Authorized [id number] Pending Review Physical Therapy 07/26/2023 08/24/2024 60 60 Encounter Details Date Type Department Care Team (Latest Contact Info) Description 08/09/2023 12:50 PM CDT - 08/09/2023 11:59 PM CDT Hospital Encounter [facility] [address] [place], [place] [id number] [place] [address] [place] [address] [place] [address] [place] [address] Knee Pain Discharge Disposition: Home or Self [...] Progress Notes * Christy Roberson, PT - 08/09/2023 1:00 PM CDT Physical Therapy Visit Note: Patient Name: Suad Somers Diagnosis: Chronic pain of both knees (primary encounter diagnosis) SUBJECTIVE Therapy Visit Start Time: 1258 Stop Time: 1338 Time Calculation (min): 40 min Treatment Day: 2 Total Approved Visits: ins 60 / PT POC up to 12 Therapy Plan of Care: 2x week for 4-6 weeks Current Therapy Orders: eval and rx Diagnosis: Bilateral chronic knee pain (M25.561, M25.562, G89.29 (ICD-10-CM)) Referring Provider: ABDIRAHMAN Vela Subjective Note: Patient states she did feel that the k-tape helped with her knee pain when she was going downsteps. States she did take it off today because it was starting to come off and she had to wear a dress for work today. Feels that we could tape both knees today. States her pain is not bad today, but also went into the office so not walking as much. Response to prior treatment: felt good Compliance to Home Program: compliant Reported Falls since last visit: no Medications changes since last visit : no Pain Current Location of Pain: B knees Current Pain Level: 3/10 OBJECTIVE Treatment provided today: Therapeutic Exercise - 55106 Number of Minutes - 14041: 40 Cardio Equipment: Octane, S2, L3 x 5' Exercise: future - retro gait and sidestepping with band around ankles as tolerated Exercise: attempted #3 eccentric step downs - however caused increased pain therefore held after 2reps on L Exercise: 3 step ups x 10 B Exercise: TRX squats with red band above knees x 10 - vc to ER/abd LEs and sit back into squat Exercise: slant board L4 x 1' Exercise: TKE teal strap x 20 B Exercise: 3 way kicks x 10 B Exercise: future - SL hip abd Exercise: lumbar ext at wall x 10 Exercise: vboard BAL x 1' each Exercise: TG squats L 13 x 10 Exercise: k-tape to both knees - horsehoe pattern for medial glide Home Exercise Program Current Home Exercise Program: continue Education Was Education Provided: Yes Topic: ther ex, knee positioning, HEP Recipient: Patient Method: Demonstration, Verbal, Return Demonstration Response: Asked questions, Demonstrates adequately, Verbalized understanding Barriers: None ASSESSMENT Assessment Note: Patient was able to progress ther ex and able to perform most without c/o increased pain. Shedid note some discomfort in L knee with TG squats and also when attempting eccentric step downs. She was able to perform a fairly deep squat with TRX with focus on ER/Abd without c/o pain in either knee. Response to Treatment : felt ok Goal Progression: ongoing Continue on Functional Deficit of: B knee pain limiting functional activities PLAN Plan Next Visit Plan: Continue PT progressing ther ex and HEP as tolerated with focus on positioning of knees with squats/knee flex activities Total Time Total Time in Minutes: 40 Timed Code Treatment Minutes : 40 documented in this encounter Plan of Treatment Not on file documented as of this encounter Visit Diagnoses Diagnosis Chronic pain of both knees- Primary documented in this encounter Care Teams Equipment Mechanic Relationship Specialty [place] [address] [facility] [place] [address] PCP - General Physician Biodiesel Plant Manager Medical 07/19/23 documented as of this encounter
--- OUTSIDE RECORDS SUMMARY | 2024-05-04 22:25 | XMS_ITS | Encounter Summary ---
Author Organization [facility] Address [address] [place] [address]. [place], [place] [phone] [place], [place] [id number] Care Team Providers Care Mail Room Name Role Phone None, Provider Primary Care Provider Unavaila ble Encounter Details Date Type Department Care Team (Latest Contact Info) Description 02/02/2023 Travel Social History Tobacco Use Types Packs/Day Years Used Date Smoking Tobacco: Never Smokeless Tobacco: Never Alcohol Use Standard Drinks/Week Comments Not Asked 0 (1 standard drink = 0.6 oz pur e alcohol) socially Comments No Sex and Gender Information Value Date Recorded Sex Assigned at Not on file Legal Sex Female 5:49 PM CDT Gender Identity Not on file Sexual Orientation Not on file documented as of this encounter Plan of Treatment Not on file documented as of this encounter Visit Diagnoses Not on filedocumented in this encounter Care Teams Mail Room Relationship Specialty Start Date End Date None, Provider, PCP - General UNKNOWN PHYSICIAN SPECIALTY 02/02/23 documented as of this encounter
--- OUTSIDE RECORDS SUMMARY | 2024-05-04 22:25 | XMS_ITS | Encounter Summary ---
Author Organization [facility] Address [address] [place] [address]. [place] [address] [place] [address] Care Team Providers Care Tin Tie Machine Operator Automatic Name Role Phone None, Provider MD Primary Care Provider Unavaila ble Reason for Visit * Reason Comments Ear Problem Left ear bleeding an d painful x 4 days Encounter Details Date Type Department Care Team (Late st Contact Info) Description 02/02/2023 8:00 AM CDT Office Visit [facility] [id number] [place] [phone] [place] [address] [place] [address] Ear Problem (Left ear bleeding and painful x 4 days) Social History Tobacco Use Types Packs/Day Years Used Date Smoking Tobacco: Never Smokeless Tobacco: Never Tobacco Cessation:Counseling Given: No Alcohol Use Standard Drinks/Week Comments Not Asked [...] Sign Reading Time Taken Comments Blood Pressure 113/78 02/02/2023 7:51 AM CDT Pulse 66 02/02/2023 7:51 AM CDT Temperature 36.9 ??C (98.4 ??F) 02/02/2023 7:51 AM CD T Respiratory Rate 14 02/02/2023 7:51 AM CDT Oxygen Saturation 99% 02/02/2023 7:51 AM CDT Inhaled Oxygen Concentration - - Weight 74.4 kg (164 lb) 02/02/2023 7:51 AM CDT Height 160 cm (5' 3 ) 02/02/2023 7:51 AM CDT Body Mass Index 29.05 02/02/2023 7:51 AM CDT documented in this encounter Patient Instructions * Attachments The following attachments cannot be sent through Care Everywhere. * Serous Otitis Media Discharge Instructions (Faroese) documented in this encounter Progress Notes * ABDIRAHMAN Haynes - 02/02/2023 8:00 AM CDT Images from the original note were not included. _ Reason for Visit: Ear Problem (Left ear bleeding and painful x 4 days) History of Present Illness: HPI Suad Somers is a 32-year-old female here for patient or evaluation through the walk-in clinic for symptoms of left ear pain. She states has been hurting for about4 days. She thought she saw a little bit of blood as well. She is not running a fever. She had somemild symptoms of upper respiratory infection to include nasal congestion, sore throat, and headache. Patient denies symptoms of visual disturbance or vomiting. Patient has not noticed a fever. Patient has a minimal cough with out wheezing. Patient denies shortness of breath. Patient has not had loose stools. Patient has been symptomatic for 4 days and is not improving with symptoms. [...] Outpatient Medications Marked as Taking for the 02/02/23 encounter (Office Visit) with ABDIRAHMAN Haynes Medication Sig Dispense Refill doxycycline hyclate (VIBRAMYCIN) 100 MG capsule Take 1 capsule (100 mg total) by mouth 2 (two) times daily for 10 days. 20 capsule 0 fluticasone propionate (FLONASE) 50 MCG/ACT nasal spray 1 spray by Nasal route daily. 16 g 0 Review of patient's allergies indicates: Not on File History reviewed. No pertinent past medical history. History reviewed. No pertinent surgical history. Social History Tobacco Use Smoking status: Never Smokeless tobacco: Never Substance Use Topics Drug use: Never No family history on file. No family status information on file. Physical Exam Constitutional: Patient is oriented to person, place, and time. Patient appears well-developed and well-nourished. HENT: Right Ear: External ear normal. Left Ear: External ear normal. Head: Normocephalic. Cystic acne mostly left-sided no frontal sinus tenderness Nose: Nose normal. Turbinates are swollen Mouth/Throat: Oropharynx is clear and moist. Positive postnasal drainage minimal Eyes: Pupils are equal, round, and reactive to light. Neck: No JVD present. No thyromegaly present. No nuchal rigidity Cardiovascular: Normal rate, regular rhythm, normal heart sounds and intact distal pulses. No murmur heard. Pulmonary/Chest: No respiratory distress. Patient has no wheezes. Patient has no rales. Patient exhibits no tenderness. Abdominal: Patient exhibits no distension and no [...] content normal. No data to display Vitals: 02/02/23 0751 BP: 113/78 Pulse: 66 Body mass index is 29.05 kg/m??. Assessment and Plan Encounter Diagnose(s) ICD-10-CM SNOMED CT(R) 1. Non-recurrent acute serous otitis media of left ear H65.02 ACUTE NON- SUPPURATIVE SEROUS OTITIS MEDIA doxycycline hyclate (VIBRAMYCIN) 100 MG capsule fluticasone propionate (FLONASE) 50 MCG/ACT nasal spray Orders Placed This Encounter doxycycline hyclate (VIBRAMYCIN) 100 MG capsule fluticasone propionate (FLONASE) 50 MCG/ACT nasal spray Patient was told to push liquids and [...] Portions of this note were dictated using [employer] speech recognition software. Occasional wrong wordor sound-alike substitutions may have occurred due to the inherent limitations of voice recognition software. Please read the chart carefully and recognize, using context, where the substitutions may have occurred. [place] PA-C evaluated and Dr. Ana Wagner reviewed and agrees with plan. Cosigned by Ana Wagner MD at 02/02/2023 9:38 PM CDT documented in this encounter Plan of Treatment Not on file documented as of this encounter Visit Diagnoses Diagnosis Non-recurrent acute serous otitis media of left ear- Primary documented in this encounter Care Teams Tin Tie Machine Operator Automatic Relationship Specialty Start Date End Date None, Provider, PCP - General UNKNOWN PHYSICIAN SPECIALTY 02/02/23 documented as of this encounter
--- OUTSIDE RECORDS SUMMARY | 2024-05-04 22:25 | XMS_ITS | Encounter Summary ---
Author Organization [facility] Address [address] [place] [address]. [place], [place] [address] [place] [address] Care Team Providers Care Service Or Work Dispatcher Chief Name Role Phone Francisco Polanco Primary Care Provider [phone] Reason for Visit * Reason Comments Jnt Pain/Knee * Physical Medicine (Routine) - Pending Review Specialty Diagnoses / Procedures Referred By Cortez t Referred To Contact PHYSICAL THERAPY Diagnoses Bilateral chronic knee pain Procedures OFFICE/OUTPATIENT NEW LOW MDM 30-44 MINUTES OFFICE/OUTPT VISIT,NEW,LEVL IV OFFICE/OUTPT VISIT,NEW,LEVL V OFFICE/OUTPT VISIT,EST,LEVL III OFFICE/OUTPT VISIT,EST,LEVL IV OFFICE/OUTPT VISIT,[place] [address] [place] [address] Phone: tel: fax: [facility] [address] [place] [address] Phone: tel: fax: Referral ID Status Reason Start Date Expiration Date Visits Requested Visits Authorized [id number] Pending Review Physical Therapy 07/26/2023 08/24/2024 60 60 Encounter Details Date Type Department Care Team (Latest Contact Info) Description 08/07/2023 9:42 AM CDT - 08/07/2023 11:59 PM CDT Hospital Encounter [facility] [address] [place], [place] [phone] [place] [address] [place] [address] [place] [address] [address] [place], [place] [id number] Jnt Pain/Knee Discharge Disposition: Home or Self Care (Routine [...] on file documented as of this encounter Discharge Instructions * Patient Instructions* Christy Roberson, PT - 08/07/2023 10:00 AM CDT Access Code: [email or web address] URL: [email or web address] Date: 08/07/2023 Prepared by: Christy Roberson Exercises - Straight Leg Raise with External Rotation - 1-2 x daily - 7 x weekly - 10-20 reps - 3 hold - Seated Long Arc Quad - 1-2 x daily - 7 x weekly - 10-20 reps - 3 hold - Prone Hip Internal Rotation AROM - 1-2 x daily - 7 x weekly - 10-20 reps - 3 hold - Prone Hip External Rotation AROM - 1-2 x daily - 7 x weekly - 10-20 reps - 3 hold documented in this encounter Medications at Time of Discharge fluticasone propionate (FLONASE) 50 MCG/ACT nasal sprayIndications:N on-recurrent acute serous otitis media of left ear 1 spray by Nasal route daily. 16 g 02/02/2023 documented as of this encounter Progress Notes * Christy Roberson, PT - 08/07/2023 10:00 AM CDT PT Initial Evaluation- Knee Diagnosis: Chronic pain of both knees (primary encounter diagnosis) SUBJECTIVE Therapy Visit Start Time: 1000 Stop Time: 1040 Time Calculation (min): 40 min Visit Diagnosis: Bilateral chronic knee pain (M25.561, M25.562, G89.29 (ICD-10-CM)) Referring Provider: ABDIRAHMAN Gonzalez Date of Injury/Onset: increased pain in past 6 months Work Status: [employer] job. Subjective Note: Patient states she pain in both knees that started to act up in the past 6 months. States shehas been trying to workout more to lose weight. States they have become more painful to the point she has increased pain when going up/down steps and squatting to pick something up off the floor. States last week her R knee hurt more, but this week it seems the L hurts worse. States the pain is around the entire knee. States there has been times when going down the steps that it feels like her knee is going to give out. States it feels like the shorter steps into her home are more painful than going down a full flight of steps. Mechanism of Injury: unknown but possibly from starting to exercise Pain Current Pain Level: 4/10 Lowest Pain Level: 4/10 Highest Pain Level: 6/10 Activities That Increase Pain: squatting, steps, walking Activities That Decrease Pain: nothing Location of Pain: both knees Review With Patient Medication Reviewed: yes OBJECTIVE Functional Mobility Gait: patient has increased pronation B when ambulating without shoes Squat mechanics: mild IR/adduction noted with squats Patellofemoral Tracking Open chain: lateral tracking of B patella at end range of knee ext HIP ROM in Degrees Other (Comments): B hip ROM WFL KNEE ROM in Degrees Other (Comments): B knee ROM WNL Flexibility 90/90 Hamstrings R: -25 90/90 Hamstrings L: -25 Other (Comments): L ITB mildly decreased compared to R HIP STRENGTH Hip Flexion R: 4/5 Hip Flexion L: 4/5 Hip Extension R: 4-/5 Hip Extension L: 4/5 Hip ABDduction R: 4-/5 Hip ABDduction L: 4-/5 Hip Internal Rotation R: 4/5 Hip Internal Rotation L: 4/5 Hip External Rotation R: 4+/5 Hip External Rotation L: 4+/5 Other (Comments): abdominal strength 3+/5 KNEE STRENGTH Knee Flexion R: 5/5 Knee Flexion L: 5/5 Knee Extension R: 4+/5 Knee Extension L: 4+/5 ANKLE STRENGTH Dorsiflexion R: 4/5 Dorsiflexion L: 4+/5 Palpation Pain: no tenderness to palpation Other (comments): crepitus noted B knees Joint Play Assessment Patellar mobility: no deficits noted Special tests Lumbar testing: (increased R hip abd strength noted after prolonged prone on elbow positioning) Ligament Testing Valgus stress at 0 degrees: negative left, negative right Varus stress at 0 degrees: negative left, negative right Patellofemoral Patellar apprehension: negative left, negative right Other Tests Functional/Disability Tool Score: LEFS = 33/80 (41.25% functional ability) Lower Extremity Functional Scale: Lower Extremity Functional Scale (LEFS) Any of your usual work, housework, or school activities: Moderate difficulty (2) Your usual hobbies, recreational or sporting activities: Quite a bit of difficulty (1) Getting into or out of the bath.: Moderate difficulty (2) Walking between rooms: Little bit of difficulty (3) Putting on your shoes or socks: No difficulty (4) Squatting: Extreme difficulty or unable to perform activity (0) Lifting an object, like a bag of groceries from the floor: Quite a bit of difficulty (1) Performing light activities around your home: Moderate difficulty (2) Performing heavy activities around your home: Moderate difficulty (2) Getting in or out of a car: Moderate difficulty (2) Walking 2 blocks: Little bit of difficulty (3) Walking a mile: Little bit of difficulty (3) Going up or down 10 stairs (about 1 flight of steps): Quite a bit of difficulty (1) Standing for 1 hour: Quite a bit of difficulty (1) Sitting for 1 hour: Moderate difficulty (2) Running on even ground: Extreme difficulty or unable to perform activity (0) Running on uneven ground: Extreme difficulty or unable to perform activity (0) Making sharp turns while running fast: Quite a bit of difficulty (1) Hopping: Extreme difficulty or unable to perform activity (0) Rolling over in bed: Little bit of difficulty (3) Total Score: 33 % of maximal function?? = (LEFS score) / 80 * 100: 41.25 ASSESSMENT Assessment Note: Patient presents with history of B knee pain which has increased in the past 6 months after trying to exercise more. She does have significant crepitus noted in her B knees with all movements. She has lateral tracking of her B patella at end range of ext with decreased VMO strength. She also has tightness in L ITB compared to R. She did have IR/ADD of B knees when performing squat and decreased pain noted when focused on improved squat mechanics. She will benefit from skilled PT to improve her strength and flexibility to decrease stress on knee joints for improved functional mobility and decreased knee pain. Therapy Diagnosis: chronic B knee pain, PF dysfunction Problem List: Decreased Flexibility, Decreased Strength, Limited Functional Activities, Pain Prognosis: Good PT EVAL COMPLEXITY PT - Personal Factors/Comorbidities Impacting Care: 1-2 personal factors/comorbidities PT - Examination of Body Systems: High (at least 4 Elements) PT - Clinical Presentation of Patient: Stable uncomplicated PT - Decision Making: Low PT Eval Low Complexity - Minutes - 89394: 60 Education Was Education Provided: Yes Topic: PT POC, HEP, remove k-tape if any irritation noted Recipient: Patient Method: Demonstration, Verbal, Written, Return Demonstration Response: Asked questions, Demonstrates adequately, Verbalized understanding Barriers: None PLAN Plan Treatments/Interventions: Therapeutic Exercise - 15043, Neuromuscular Re- education - 12153, Ultrasound - 87710, Manual Therapy - 86684, Hot/Cold Pack - 89067, Electrical Stimulation Unattended - 41135 Therapy Frequency: (2x week for 4-6 weeks) Plan For Next Session: Continue PT progressing ther ex and HEP as tolerated Instruction Provided Home Exercise Program: handout given and reviewed TREATMENT PROVIDED TODAY Timed Treatments Therapeutic Exercise Minutes - 32408: 15 Therapeutic Exercise - 54334: instruction in HEP and k-tape to L knee Total Minutes: 15 Total Times Total Treatment Minutes: 15 Total Timed treatment Minutes: 15 Evaluation + Treatment = Total Time For Today's Visit: 75 Functional deficits and goals: Decreased knowledge of how to manage symptoms independently: GOAL: Patient able to perform individualized home exercise program for independent symptom management within 6 weeks. Impaired reciprocal stair negotiation: GOAL: Patient to exhibit Bilateral hip and knee strength to be equal to 5/5 for reciprocal stair negotiation within 6 weeks. Pain affects functional tasks: GOAL: Patient to report reduction of Bilateral knee pain to less than or equal to 2/10, as shown by the visual analog scale, with functional activities of squatting andwalking within 6 weeks. Functional/Disability scale shows deficits in activity: GOAL: Patient to score at least 55% on the LEFS scale to demonstrate improvement in going up/down steps and squatting with ADLs and picking up her child within 6 weeks. THE PROVIDER, I AM IN AGREEMENT WITH THE STATED THERAPY PLAN OF CARE. Provider Signature: Date: In signing this document, provider certifies that prescribed rehabilitation is a medical necessity. Date: 08/07/2023 Patient Name: Suad Somers Patient : 1990 Patient [facility] [address] [facility] [address] Dept: [phone] Dept Cosigned by ABDIRAHMAN Gonzalez at 08/07/2023 3:04 PM CDT * Christy Roberson, PT - 08/07/2023 10:00 AM CDT Physical Therapy Visit Note: Patient Name: Suad Somers Diagnosis: Chronic pain of both knees (primary encounter diagnosis) SUBJECTIVE Therapy Visit Start Time: 1000 Stop Time: 1040 Time Calculation (min): 40 min Treatment Day: 1 Total Approved Visits: ins 60 / PT POC up to 12 Therapy Plan of Care: 2x week for 4-6 weeks Current Therapy Orders: eval and rx Diagnosis: Bilateral chronic knee pain (M25.561, M25.562, G89.29 (ICD-10-CM)) Referring Provider: ABDIRAHMAN Vela Subjective Note: see eval OBJECTIVE Treatment provided today: Therapeutic Exercise - 33030 Number of Minutes - 43502: 15 Exercise: HEP - SLR with ER. LAQs, prone hip IR and ER Exercise: trial of k-tape to L knee in horseshoe pattern for medial glide Exercise: future - step ups with focus on knee positioning Exercise: future - TRX squats with band around knees and limit to pain free ROM Exercise: future - slant board Exercise: future - TKE Exercise: future - 3 way kicks Exercise: future - SL hip abd Exercise: future - lumbar ext at wall Exercise: future - vboard BAL Home Exercise Program Current Home Exercise Program: handout given Education Was Education Provided: Yes Barriers: None ASSESSMENT Assessment Note: see eval Continue on Functional Deficit of: B knee pain limiting functional activities PLAN Plan Next Visit Plan: Continue PT progressing ther ex and HEP as tolerated with focus on positioning of knees with squats/knee flex activities Total Time Total Time in Minutes: 15 Timed Code Treatment Minutes : 15 documented in this encounter Plan of Treatment Not on file documented as of this encounter Visit Diagnoses Diagnosis Chronic pain of both knees- Primary documented in this encounter Care Teams Service Or Work Dispatcher Chief Relationship Specialty [place] [address] [place] [address] PCP - General Physician Engine Lathe Set Up Operator Tool Medical 07/19/23 documented as of this encounter
--- OUTSIDE RECORDS SUMMARY | 2024-05-04 22:25 | XMS_ITS | Encounter Summary ---
Author Organization [facility] Address [address] [place] [address]. [place], [place] [address] [place] [address] Care Team Providers Care Convention Services Manager Name Role Phone Francisco Polanco Primary Care Provider [phone] Encounter Details Date Type Department Care Team (Latest Contact Info) Description 08/18/2023 Travel Social History Tobacco Use Types Packs/Day [...] on filedocumented in this encounter Care Teams Convention Services Manager Relationship Specialty [place] [address] [place] [address] PCP - General Physician Ticket Clerk Medical 07/19/23 documented as of this encounter
--- OUTSIDE RECORDS SUMMARY | 2024-05-04 22:25 | XMS_ITS | Encounter Summary ---
Author Organization [facility] Address [address] [place] [address]. [place], [place] [address] [place] [address] Care Team Providers Care Diet Attendant Name Role Phone Francisco Polanco Primary Care Provider [phone] Encounter Details Date Type Department Care Team (Latest Contact Info) Description 08/16/2023 Travel Social History Tobacco Use Types Packs/Day [...] on filedocumented in this encounter Care Teams Diet Attendant Relationship Specialty [place] [address] [place] [address] PCP - General Physician Director Of Physical Therapy Medical 07/19/23 documented as of this encounter
--- OUTSIDE RECORDS SUMMARY | 2024-05-04 22:25 | XMS_ITS | Encounter Summary ---
Author Organization [facility] Address [address] [place] [address]. [place], [place] [address] [place] [address] Care Team Providers Care Carpenters Name Role Phone Unavailable Primary Care Provider Unavailabl e Encounter Details Date Type Department Care Team (Late st Contact Info) Description 05/09/2012 Abstract [facility] [address] [place], [place] [id number] Mayte Lee MD [address] [place] [address] Social History Tobacco Use Types Packs/Day Years [...]
--- OUTSIDE RECORDS SUMMARY | 2024-05-04 22:25 | XMS_ITS | Encounter Summary ---
Author Organization [facility] Address [facility] [address] [place] [address] Care Team Providers Care Agricultural Service Technician Name Role Phone Francisco Polanco Primary Care Provider [phone] Encounter Details Date Type Department Care Team (Latest Contact Info) Description 07/26/2023 10:03 AM CDT - 07/26/2023 11:59 PM CDT Hospital Encounter [facility] [address] [place], [place] [id number] [place] [address] [place] [address] Discharge Disposition: Home or Self Care (Routine [...] g 02/02/2023 documented as of this encounter Plan of Treatment Not on file documented as of this encounter Procedures Procedure Name Priority Date/Time Associated Diagnosis Comments XR KNEE RT 3V Routine 07/26/2023 10:38 AM CDT Bilateral chronic knee pain XR KNEE LT 3V Routine 07/26/2023 10:38 AM CDT Bilateral chronic knee pain documented in this encounter Results * XR KNEE LT 3V (07/26/2023 10:38 AM CDT) Anatomical Region Laterality Modality Knee Radiographic Ammy ging 07/28/2023 3:39 PM CDT Impressions 07/28/2023 4:14 PM CDT IMPRESSION: Trace left knee joint effusion without evidence of acute osseous abnormality or significant degenerative changes. Ordered By: FRANCISCO POLANCO Interpreted By: Luiz Okeefe MD, 07/28/2023 3:39 PM Narrative 07/28/2023 4:14 PM CDT Examination: XR KNEE RT 3V, XR KNEE LT 3V Exam time: 07/26/2023 10:30 AM Indication: Chronic intermittent bilateral knee pain. Comparison: None available. Technique: 3 views of the bilateral knees, 6 images. Findings: No fracture or dislocation. The joint spaces are well-maintained, and osseous alignment is normal. There is a trace left knee joint effusion. No right knee joint effusion. Procedure Note Luiz Okeefe MD - 07/28/2023 Examination: XR KNEE RT 3V, XR KNEE LT 3V Exam time: 07/26/2023 10:30 AM Indication: Chronic intermittent bilateral knee pain. Comparison: None available. Technique: 3 views of the bilateral knees, 6 images. Findings: No fracture or dislocation. The joint spaces arewell-maintained, and osseous alignment is normal. There is a trace leftknee joint effusion. No right knee joint effusion. IMPRESSION: Trace left knee joint effusion without evidence of acuteosseous abnormality or significant degenerative changes. Ordered By: FRANCISCO POLANCO Interpreted By: Luiz Okeefe MD, 07/28/2023 3:39 PM Francisco [facility] Final Result * XR KNEE RT 3V (07/26/2023 10:38 AM CDT) Anatomical Region Laterality Modality Knee Radiographic Ammy ging 07/28/2023 3:39 PM CDT Impressions 07/28/2023 4:14 PM CDT IMPRESSION: Trace left knee joint effusion without evidence of acute osseous abnormality or significant degenerative changes. Ordered By: FRANCISCO POLANCO Interpreted By: Luiz Okeefe MD, 07/28/2023 3:39 PM Narrative 07/28/2023 4:14 PM CDT Examination: XR KNEE RT 3V, XR KNEE LT 3V Exam time: 07/26/2023 10:30 AM Indication: Chronic intermittent bilateral knee pain. Comparison: None available. Technique: 3 views of the bilateral knees, 6 images. Findings: No fracture or dislocation. The joint spaces are well-maintained, and osseous alignment is normal. There is a trace left knee joint effusion. No right knee joint effusion. Procedure Note Luiz Okeefe MD - 07/28/2023 Examination: XR KNEE RT 3V, XR KNEE LT 3V Exam time: 07/26/2023 10:30 AM Indication: Chronic intermittent bilateral knee pain. Comparison: None available. Technique: 3 views of the bilateral knees, 6 images. Findings: No fracture or dislocation. The joint spaces arewell-maintained, and osseous alignment is normal. There is a trace leftknee joint effusion. No right knee joint effusion. IMPRESSION: Trace left knee joint effusion without evidence of acuteosseous abnormality or significant degenerative changes. Ordered By: FRANCISCO POLANCO Interpreted By: Luiz Okeefe MD, 07/28/2023 3:39 PM us Francisco [facility] Final Result documented in this encounter Visit Diagnoses Diagnosis Bilateral chronic knee pain Pain in joint, lower leg documented in this encounter Care Teams Agricultural Service Technician Relationship Specialty [place] [address] [place] [address] PCP - General Physician Riveter Helper Medical 07/19/23 documented as of this encounter
--- OUTSIDE RECORDS SUMMARY | 2024-05-04 22:25 | XMS_ITS | Encounter Summary ---
Author Organization [facility] Address Counts include 234 beds at the [facility]. [place], [place] [address] [place] [address] Care Team Providers Care Internet Merchant Name Role Phone Unavailable Primary Care Provider Unavailabl e Encounter Details Date Type Department Care Team (Late st Contact Info) Description 04/14/2010 Abstract [facility] [address] [place], [place] [phone] Mayte Lee MD [address] [place], [place] [address] Social History Tobacco Use Types Packs/Day Years Used Date Smoking Tobacco: Never Assessed Comments Unknown Sex and Gender Information Value Date Recorded Sex Assigned at Not on file Legal Sex Female 5:49 PM CDT Gender Identity Not on file Sexual Orientation Not on file documented as of this encounter Plan of Treatment Not on file documented as of this encounter Visit Diagnoses Diagnosis Special screening examination for chlamydial disease Special screening examination for unspecified chlamydial disease documented in this encounter
--- OUTSIDE RECORDS SUMMARY | 2024-05-04 22:25 | XMS_ITS | Encounter Summary ---
Author Organization [facility] Address [facility] [place], [place] [address] [place] [address] Care Team Providers Care Slab Polisher Name Role Phone Francisco Polanco Primary Care Provider [phone] Reason for Visit * Reason Comments Knee Pain * Physical Medicine (Routine) - Pending Review Specialty Diagnoses / Procedures Referred By Cortez t Referred To Contact PHYSICAL THERAPY Diagnoses Bilateral chronic knee pain Procedures OFFICE/OUTPATIENT NEW LOW MDM 30-44 MINUTES OFFICE/OUTPT VISIT,NEW,LEVL IV OFFICE/OUTPT VISIT,NEW,LEVL V OFFICE/OUTPT VISIT,EST,LEVL III OFFICE/OUTPT VISIT,EST,LEVL IV OFFICE/OUTPT VISIT,[place] [address] [place] [address] Phone: tel: fax: [facility] [address] [place] [address] Phone: tel: fax: Referral ID Status Reason Start Date Expiration Date Visits Requested Visits Authorized [id number] Pending Review Physical Therapy 07/26/2023 08/24/2024 60 60 Encounter Details Date Type Department Care Team (Latest Contact Info) Description 08/18/2023 7:09 AM CDT - 08/18/2023 11:59 PM CDT Hospital Encounter [facility] [address] [place], [place] [phone] [place] [address] [place] [address] Katy Trinh, SHRUTHI Knee Pain Discharge Disposition: Home or [...] Notes * Katy Bebeto SHRUTHI Trinh - 08/18/2023 7:30 AM CDT Physical Therapy Visit Note: Patient Name: Suad Somers Diagnosis: Chronic pain of both knees (primary encounter diagnosis) SUBJECTIVE Therapy Visit Start Time: 724 Stop Time: 808 Time Calculation (min): 44 min Treatment Day: 4 Total Approved Visits: ins 60 / PT POC up to 12 Therapy Plan of Care: 2x week for 4-6 weeks Current Therapy Orders: eval and rx Diagnosis: Bilateral chronic knee pain (M25.561, M25.562, G89.29 (ICD-10-CM)) Referring Provider: ABDIRAHMAN Vela Subjective Note: The knees are not horrible but sore. [place] the [place], walked a lot. Not a lot of pain. Sitting is not good. Response to prior treatment: Good, sore, had a good workout. Did not start hurting till walking up the hills. Compliance to Home Program: compliant Pain Current Location of Pain: B knees Other (comments): just when she sits and steps OBJECTIVE Treatment provided today: Therapeutic Exercise - 31811 Number of Minutes - 71596: 44 Cardio Equipment: Octane, S2, L3 x 5' Exercise: retro gait, monster walking, and sidestepping with L2 band around ankles 20' x 2 ea Exercise: #3 eccentric step downs x10 grinding, no pain Exercise: 4 step ups x 10 B Exercise: TRX squats with red band above knees x 10 - vc to ER/abd LEs and sit back into squat Exercise: slant board L4 x 1' Exercise: next-TKE teal strap x 20 B Exercise: 3 way kicks x 12 B Exercise: future - SL hip abd Exercise: lumbar ext at wall x 10 Exercise: vboard BAL x 1' each Exercise: next-TG squats L 13 x 10 Exercise: k-tape to both knees - horseshoe pattern for medial glide Home Exercise Program Current Home Exercise Program: Continue with HEP Education Was Education Provided: Yes Recipient: Patient Method: Demonstration, Verbal, Return Demonstration Response: Demonstrates adequately, Verbalized understanding Barriers: None ASSESSMENT Assessment Note: Increased reps on 3-way kicks ex in order to improve hip strength. Pt tolerated the Rx well this session. Pt did not have pain with the eccentric step down ex. Less pain and discomfort noted with the other interventions. Fatigue was noted after each intervention. No adverse affects to note post Rx. Goal Progression: ongoing Continue on Functional Deficit of: B knee pain limiting functional activities PLAN Plan Next Visit Plan: Continue with PT per POC Total Time Total Time in Minutes: 44 Timed Code Treatment Minutes : 44 documented in this encounter Plan of Treatment Not on file documented as of this encounter Visit Diagnoses Diagnosis Chronic pain of both knees- Primary documented in this encounter Care Teams Slab Polisher Relationship Specialty Start [place] [address] [place] [address] PCP - General Physician Photogrammetric Stereo Compiler Medical 07/19/23 documented as of this encounter
--- OUTSIDE RECORDS SUMMARY | 2024-05-04 22:25 | XMS_ITS | Encounter Summary ---
Author Organization [facility] Address [address] [place] [address]. [place], [place] [address] [place] [address] Care Team Providers Care Supervisor Twisting Department Name Role Phone Francisco Polanco Primary Care Provider [phone] Encounter Details Date Type Department Care Team (Latest Contact Info) Description 07/26/2023 Travel Social History Tobacco Use Types Packs/Day [...] on filedocumented in this encounter Care Teams Supervisor Twisting Department Relationship Specialty [place] [address] [place] [address] PCP - General Physician Grape Cutter Medical 07/19/23 documented as of this encounter
--- OUTSIDE RECORDS SUMMARY | 2024-05-04 22:25 | XMS_ITS | Encounter Summary ---
Author Organization [facility] Address [address] [place] [address]. [place], [place] [address] [place] [address] Care Team Providers Care Sinter Feeder Name Role Phone Francisco Polanco Primary Care Provider [phone] Encounter Details Date Type Department Care Team (Latest Contact Info) Description 08/07/2023 Travel Social History Tobacco Use Types Packs/Day [...] on filedocumented in this encounter Care Teams Sinter Feeder Relationship Specialty [place] [address] [place] [address] PCP - General Physician Swine Genetics Researcher Medical 07/19/23 documented as of this encounter
--- OUTSIDE RECORDS SUMMARY | 2024-05-04 22:25 | XMS_ITS | Encounter Summary ---
Author Organization [facility] Address [address] [place] [address]. [place], [place] [address] [place] [address] Care Team Providers Care Industrial Aerial Installer Name Role Phone Francisco Polanco Primary Care Provider [phone] Reason for Referral * Physical Medicine (Routine) - Pending Review Specialty Diagnoses / Procedures Referred By Cortez ybarra Referred To Contact PHYSICAL THERAPY Diagnoses Bilateral chronic knee pain Procedures OFFICE/OUTPATIENT NEW LOW MDM 30-44 MINUTES OFFICE/OUTPT VISIT,NEW,LEVL IV OFFICE/OUTPT VISIT,NEW,LEVL V OFFICE/OUTPT VISIT,EST,LEVL III OFFICE/OUTPT VISIT,EST,LEVL IV OFFICE/OUTPT VISIT,EST,[place] [address] [place] [address] Phone: tel: fax: [facility] [id number] [place] [address] Phone: tel: fax: Referral ID Status Reason Start Date Expiration Date Visits Requested Visits Authorized [id number] Pending Review Physical Therapy 07/26/2023 08/24/2024 60 60 Reason for Visit * Reason Comments Physical Annual physical Knee Pain Pt c/o CHRISTINA knee pain for years with the past 5 months being worse New Patient Establish care Encounter Details Date Type Department Care Team (Late st Contact Info) Description 07/26/2023 9:20 AM CDT Office Visit [facility] [address] [place] [address] [place] [address] [place] [phone] Physical (Annual physical); Knee Pain (Pt c/o CHRISTINA knee pain for years with the past 5 months being worse); New Patient ([facility] care) Social History Tobacco Use Types Packs/Day Years Used Date Smoking Tobacco: Never Smokeless Tobacco: Never Tobacco Cessation:Counseling Given: No Alcohol Use Standard Drinks/Week Comments Yes 0 [...] Sign Reading Time Taken Comments Blood Pressure 108/75 07/26/2023 9:19 AM CDT Pulse 77 07/26/2023 9:19 AM CDT Temperature 36.7 ??C (98.1 ??F) 07/26/2023 9:19 AM CD T Respiratory Rate 16 07/26/2023 9:19 AM CDT Oxygen Saturation 99% 07/26/2023 9:19 AM CDT Inhaled Oxygen Concentration - - Weight 76.2 kg (168 lb) 07/26/2023 9:19 AM CDT Height 160 cm (5' 3 ) 07/26/2023 9:19 AM CDT Body Mass Index 29.76 07/26/2023 9:19 AM CDT documented in this encounter Patient Instructions * Patient Instructions* ABDIRAHMAN Gonzalez - 07/26/2023 9:20 AM CDT Glucosamine and chondroitin to help prevent inflammation. Turmuric for inflammation. Zyrtec at night time to help with drainage documented in this encounter Progress Notes * ABDIRAHMAN Gonzalez - 07/26/2023 9:20 AM CDT Reason for Visit: Physical (Annual physical), Knee Pain (Pt c/o CHRISTINA knee pain for years with the past 5 months being worse), and New Patient (Establish care) History of Present Illness: 32-year-old female here to establish care. She has not had annual physical in quite some time. Her only complaint today is bilateral knee pain that comes and goes for several months. She states she has a family history of bad knees and her parents had knee replacements in their 50s. Complains of pain going up stairs not down stairs. Grinding popping present. No giving out. No specific injury to the knees. She states she was doing exercises to help build up muscles around the knee but states squats really make the knees worse. She has never had them evaluated by provider. Physical Knee Pain New Patient ROS: Review of Systems All other systems reviewed and are negative. Medications: Current Outpatient Medications: fluticasone propionate (FLONASE) 50 MCG/ACT nasal spray, 1 spray by Nasal route daily. (Patient nottaking: Reported on 07/26/2023), Disp: 16 g, Rfl: 0 Review of patient's allergies indicates: No Known Allergies Past Medical History: Diagnosis Date ADHD (attention deficit hyperactivity disorder) History reviewed. No pertinent surgical history. Social History Socioeconomic History Marital status: Tobacco Use Smoking status: Never Smokeless tobacco: Never Vaping Use Vaping Use: Never used Substance and Sexual Activity Alcohol use: Yes Comment: socially Drug use: Never Social History Narrative Lives with spouse and 2 daughters E-Cigarettes Questions Responses E-Cigarette Use Never User Family History Problem Relation Name Age of Onset Hypertension Mother Hyperlipidemia Father Dementia Maternal Grandmother Dementia Paternal Grandmother Family Status Relation Name Status Mother Alive Father Alive MGM (Not Specified) PGM (Not Specified) Physical Exam Vitals reviewed. Constitutional: Appearance: Normal appearance. HENT: Right Ear: Tympanic membrane normal. Left Ear: Tympanic membrane normal. Nose: Nose normal. Mouth/Throat: Mucous membranes are moist. Oropharynx is clear. Eyes: Pupils: Pupils are equal, round, and reactive to light. Cardiovascular: Rate and Rhythm: Normal rate and regular rhythm. Pulses: Normal pulses. Heart sounds: Normal heart sounds. No murmur heard. No gallop. Pulmonary: Effort: Pulmonary effort is normal. No respiratory distress. Breath sounds: Normal breath sounds. No wheezing or rales. Musculoskeletal: Cervical back: Normal range of motion. Comments: Bilateral knees no effusion, no ecchymosis, no redness or warmth to touch. Full passive range of motion bilaterally with only a pulling or stretching and full flexion. Nontender to palpation over the joint spaces or popliteal areas. Negative Guera, negative drawer, negative Deepthi, negative pivot shift test bilaterally. Nontender palpation over the prepatellar bursa. Mild crepitus over the right more than the left with passive range of motion. Skin: General: Skin is warm and dry. Capillary Refill: Capillary refill takes less than 2 seconds. Neurological: Mental Status: She is alert. Psychiatric: Mood and Affect: Mood normal. Behavior: Behavior normal. Thought Content: Thought content normal. Judgment: Judgment normal. Filed Vitals: 07/26/23 0919 BP: 108/75 Pulse: 77 Resp: 16 Temp: 98.1 ??F (36.7 ??C) TempSrc: Core SpO2: 99% Weight: 76.2 kg (168 lb) Height: 1.6 m (5' 3 ) Diagnoses/Impression: 1. Bilateral chronic knee pain XR KNEE RT 3V XR KNEE LT 3V Ambulatory referral to Physical Therapy 2. Annual physical exam Recommendations and Plan: Will defer to annual labs at this time. Patient is non-smoker rarely drinks and is active works out. No family history of diabetes. No family history of early heart disease. Orders Placed This Encounter XR KNEE RT 3V XR KNEE LT 3V Ambulatory referral to Physical Therapy Reviewed and updated this visit by provider: ABDIRAHMAN GONZALEZ Referring Provider: No ref. provider found PCP: ABDIRAHMAN GONZALEZ documented in this encounter Plan of Treatment Scheduled Referrals Name Type Priority Associated Diagnoses Orde r Schedule Ambulatory referral to Physical Therapy Referral Routine Bilateral chronic knee pain Ordered: 07/26/2023 documented as of this encounter Results * XR KNEE LT [...] documented in this encounter Visit Diagnoses Diagnosis Annual physical exam- Primary Routine general medical examination at a health care facility Bilateral chronic knee pain Pain in joint, lower leg Bilateral chronic knee pain Pain in joint, lower leg documented in this encounter Care Teams Industrial Aerial Installer Relationship Specialty [place] [address] [place] [address] PCP - General Physician Farm General Manager Medical 07/19/23 documented as of this encounter
--- OUTSIDE RECORDS SUMMARY | 2024-05-04 22:25 | XMS_ITS | Encounter Summary ---
Author Organization [facility] Address [address] [place] [address]. [place] [address] [place] [address] Care Team Providers Care Manager Game Name Role Phone Unavailable Primary Care Provider Unavailabl e Encounter Details Date Type Department Care Team (Late st Contact Info) Description 04/13/2011 Abstract [facility] [address] [place], [place] [id number] Mayte Lee MD [address] [place], [place] [id number] Social History Tobacco Use Types Packs/Day Years [...] of this encounter Visit Diagnoses Diagnosis Screening for malignant neoplasm of cervix Screening for malignant neoplasm of the cervix documented in this encounter
--- OUTSIDE RECORDS SUMMARY | 2024-05-04 22:25 | XMS_ITS | Encounter Summary ---
Author Organization [facility] Address [facility] [place], [place] [address] [place] [address] Care Team Providers Care Wound Care Rn Name Role Phone Francisco Polanco Primary Care Provider Reason for Visit * Reason Comments Knee Pain * Physical Medicine (Routine) - Pending Review Specialty Diagnoses / Procedures Referred By Cortez t Referred To Contact PHYSICAL THERAPY Diagnoses Bilateral chronic knee pain Procedures OFFICE/OUTPATIENT NEW LOW MDM 30-44 MINUTES OFFICE/OUTPT VISIT,NEW,LEVL IV OFFICE/OUTPT VISIT,NEW,LEVL V OFFICE/OUTPT VISIT,EST,LEVL III OFFICE/OUTPT VISIT,EST,LEVL IV OFFICE/OUTPT VISIT,EST,[place] [address] [place] [address] Phone: tel: fax: [facility] [address] [place] [address] Phone: tel: fax: Referral ID Status Reason Start Date Expiration Date Visits Requested Visits Authorized [id number] Pending Review Physical Therapy 07/26/2023 08/24/2024 60 60 Encounter Details Date Type Department Care Team (Latest Contact Info) Description 08/16/2023 12:51 PM CDT - 08/16/2023 11:59 PM CDT Hospital Encounter [facility] [address] [place], [place] [phone] [place] [address] [place] [address] Mable Finney PTA Knee Pain Discharge Disposition: Home or [...] as of this encounter Progress Notes * Mable Finney PTA - 08/16/2023 1:00 PM CDT Physical Therapy Visit Note: Patient Name: Suad Somers Diagnosis: Chronic pain of both knees (primary encounter diagnosis) SUBJECTIVE Therapy Visit Start Time: 1300 Stop Time: 1343 Time Calculation (min): 43 min Treatment Day: 3 Total Approved Visits: ins 60 / PT POC up to 12 Therapy Plan of Care: 2x week for 4-6 weeks Current Therapy Orders: eval and rx Diagnosis: Bilateral chronic knee pain (M25.561, M25.562, G89.29 (ICD-10-CM)) Referring Provider: ABDIRAHMAN Vela Subjective Note: Pt reports that her knees are a little sore today, but did an exercise class last night. States that stretched and did her ex afterwards. States that steps are hard today. States that she did really watch her positioning and technique with the ex class and also went slower. Didn't have tape on. Response to prior treatment: slight stiffness Compliance to Home Program: compliant Reported Falls since last visit: no Medications changes since last visit : no Pain Current Location of Pain: B knees Current Pain Level: 4/10 Other (comments): 5/10 with going up steps OBJECTIVE Treatment provided today: Therapeutic Exercise - 80673 Number of Minutes - 35914: 43 Cardio Equipment: Octane, S2, L3 x 5' Exercise: retro gait, monster walking, and sidestepping with L2 band around ankles 20' x 2 ea Exercise: held - #3 eccentric step downs - however caused increased pain therefore held after 2 reps on L Exercise: 3 step ups x [...] Barriers: None ASSESSMENT Assessment Note: Suad was having some increased knee discomfort today, likely from completing workout class last night, but not as bad as she thought it would be. Applied tape after Octane and before other strengthening activities. Pt able to complete ex without increased pain . Less actual pain at end of session. Response to Treatment : pain down to 3/10 following treatment Goal Progression: ongoing Continue on Functional Deficit of: B knee pain limiting functional activities PLAN Plan Next Visit Plan: Continue PT progressing ther ex and HEP as tolerated with focus on positioning of knees with squats/knee flex activities Total Time Total Time in Minutes: 43 Timed Code Treatment Minutes : 43 documented in this encounter Plan of Treatment Not on file documented as of this encounter Visit Diagnoses Diagnosis Chronic pain of both knees- Primary documented in this encounter Care Teams Wound Care Rn Relationship Specialty [place] [address] [place] [address] PCP - General Physician Instrument Mechanic Weapons System Medical 07/19/23 documented as of this encounter
--- OUTSIDE RECORDS SUMMARY | 2024-05-04 22:25 | XMS_ITS | Encounter Summary ---
Author Organization [facility] Address [address] [place] [address]. [place] [address] [place] [address] Care Team Providers Care Geospatial Extractor Analysis Name Role Phone Unavailable Primary Care Provider Unavailabl e Encounter Details Date Type Department Care Team (Late st Contact Info) Description 02/04/2009 Abstract [facility] [address] [place], [place] [id number] Mayte Lee MD [address] [place] [address] Social History Tobacco Use Types Packs/Day Years [...]
== END 2024-04-27 20:09 | disposition home or self-care (01) ==
PROVIDERS: Emergency Provider Physician Assistant; PCP Obstetrics & Gynecology
DX: N93.8 Other specified abnormal uterine and vaginal bleeding (principal)
CPT/HCPCS: 36415; 80053; 85025; 85610; 85730; 86850; 86900; 86901; 99284; A9270

== ENCOUNTER 2024-05-01 03:06 | Day surgery (SDC) | payer BC, OTHER, SELFPAY ==
[2024-04-30 11:03] VITALS: BMI 29.2
--- NOTE | 2024-04-30 11:21 | PC.NURSE ---
Report to the Outpatient Waiting Room, entrance under the green pavilion located off [facility], at time __11:30AM on date ___05/01/24____. Planned Procedure Time: ___1:30PM .? Time changes happen often and if your time is changed the preop area will call you the afternoon before. - You and your visitor will be asked to self-screen and do not enter if you have any COVID symptoms. Please call surgeon if you need to reschedule. - A mask is optional within the hospital at this time. Patients may have clear liquids (water, carbonated beverages, clear teas, apple juice) until 3 hours prior to surgery (10:30AM) with a maximum of 20 ounces. - No food from midnight until time of surgery and no smoking. This includes no chewing gum, candy or mints. Take only the following medications with a SIP of water on the morning of surgery: ____BCP, TRANEXAMIC ACID DO NOT STOP ANY OF YOUR OTHER PRESCRIPTION MEDICATIONS PRIOR TO SURGERY EXCEPT THE FOLLOWING Medications to discontinue per physician NONE Date to take last dose Please no make-up, nail filipino, hairspray, perfume, deodorant, or body powder the day of surgery.? No jewelry (including any body piercings) or valuables the day of surgery, leave them at home.? Please take a shower or bath the night before, or the morning of, surgery with an antibacterial soap.? Wear comfortable, loose fitting clothing.? Children are encouraged to wear pajamas. - Jewelry must be removed prior to entering the operating room.? Rings and piercings that are not removed may be cut off. - The hospital will not accept responsibility for valuables.? - Please leave all valuables, including medications, at home the day of surgery. If you are going home after surgery, a licensed mechanic welder truck driver must drive you home.? - NO public transportation without another adult if you receive anesthesia. - We recommend that an adult stay with you for 24 hours following discharge. - We also recommend that you do not drive, make important decision, drink alcoholic beverages, or take any drugs that were not prescribed by your health care provider for at least 24 hours after your discharge time. For Pediatric surgeries, we recommend two adults accompany the child home. Follow any additional instructions given to you from your surgeon. Telephone instructions given to ____PATIENT and asked if any additional questions and then verbalized understanding. Patient advised to call surgeon office or pre surgery nurse liaison [phone] if any additional questions.
[2024-05-01 10:50] VITALS: BP 124/70; PULSE 69; RESP 16; TEMP 36.5; O2SAT 100
--- NOTE | 2024-05-01 11:42 | PM.IMHP ---
H&P: HPI History of Present Illness Date/Time: 05/01/24 11:42 Chief Complaint: Vaginal bleeding Narrative: 33 y/o whose progestin containing IUD was removed because of irregular bleeding. As soon as we removed the IUD, however, her bleeding intensified. She has had bleeding nearly every day for 3 weeks, sometimes with heavy flow and cramping. We have tried a combined oral contraceptive and also Lysteda, but have not had success in stopping the bleeding. She is here for surgical evaluation and treatment. Review of Systems Review of Systems: All systems reviewed & are unremarkable except as noted in HPI and below PMFSH Family History Family History Mother Family history of attention deficit hyperactivity disorder (ADHD) Sibling Family history of attention deficit hyperactivity disorder (ADHD) Social History Social History Smoking status: Never smoker Alcohol intake: current Drinks per week: 1 Living arrangements: with family Additional living arrangements comments: SPOUSE AND 2 CHILDREN Spiritual care concerns: No Meds Home Medications and Allergies Home Medications ?Medication ?Instructions ?Recorded ?Confirmed ?Type tranexamic acid 650 mg tablet 1,300 mg (2 x 650 mg) PO TID 5 04/27/24 04/30/24 Rx days #30 tabs drospirenone 3 mg-estetrol 14.2 mg 1 tablet PO DAILY 04/30/24 04/30/24 History (28) tablet (Nextstellis) Allergies Allergy/AdvReac Type Severity Reaction Status Date / Time No Known Allergies Allergy Verified 04/30/24 10:59 Exam Const: Orientation/consciousness: patient oriented x3 Other: Well-developed, well-nourished female in no acute distress. Neck: Thyroid: thyroid normal Lymphatic: no lymphadenopathy noted (in neck, axilla or inguinal nodes) Resp: Effort & Inspection: normal respiratory effort Auscultation: clear to auscultation bilaterally Cardio: Rate: regular rate Rhythm: regular rhythm Heart sounds: S1 normal heart sound present and S2 normal heart sound present GI: Other: ABD: Soft, nontender, nondistended. No guarding or rebound tenderness. No hepatosplenomegaly. : General: Yes no CVA tenderness Other: External genitalia: normal female hair distribution, without lesion. Urethral meatus: no lesion, non prolapsed. Bladder: no mass, nontender Vagina: well-estrogenized, without lesion or discharge. No cystocele or rectocele. Cervix: no lesion or discharge. Uterus: small, anteverted, freely mobile, nontender Adnexa: no mass or tenderness. Anus/perineum: no lesions, nontender Back/Spine/Pelvis: Back: no CVA tenderness Skin: General skin exam: normal color and no rashes or lesions noted Neuro: General: patient oriented x3 Extrem: Other: Extremities: nontender with no edema Psych: Mental Status: mental status grossly normal Affect: normal affect Assessment and Plan Assessment and plan (1) Menometrorrhagia: Code(s): N92.1 - Excessive and frequent menstruation with irregular cycle Status: Acute Assessment and Plan: A: Menometrorrhagia, refractory to conservative management. P: We reviewed continued attempts at medical management vs. surgical treatment, and she prefers the latter. Specifically, I have offered her a hysteroscopy with dilation and sharp curettage. She understands risks of surgery to include risks of anesthesia, risks of pain, infection, bleeding, blood products, thromboembolic phenomena and damage to adjacent structures such as bowel, bladder, ureters, blood vessels and nerves. She understands all these risks and elects to proceed with surgery.
--- NOTE | 2024-05-01 12:05 | WPDHPUPDATE1 ---
History and Physical Update Update Date/Time: 05/01/24 12:05 History and Physical has been reviewed, including an updated exam of the patient. There are NO changes in the patient's condition. Risks, benefits, and alternatives have been discussed and questions answered. Patient agrees to proceed with procedure.
[2024-05-01] MEDS: LACTATED RINGERS 1,000 ML 30 ML IV CONT (12:10)
[2024-05-01 12:19] LABS: BEDSIDEPREGUCG Negative (Negative)
[2024-05-01] MEDS: ACETAMINOPHEN 500 MG TABLET 1000 MG PO (12:21)
--- NOTE | 2024-05-01 12:43 | P.PNAN_ITS ---
Anes - Initial Pre Proc Eval Procedure: Operation Date: 05/01/24 13:30 Proposed Procedures p Hysteroscopy Dilation and Curettage - Alex Louie MD Date/Time: 05/01/24 12:43 Surgeon: Alex Louie MD Pre Op Diagnosis: Excessive Bleeding, Clotting Patient Data Age: 33 Gender: F Height: 1.6 m Weight: 75 kg Last Vital Signs Temp 36.5 C 05/01/24 10:50 Pulse 69 05/01/24 10:50 Resp 16 05/01/24 10:50 BP 124/70 05/01/24 10:50 Pulse Ox 100 05/01/24 10:50 O2 Del Method Room Air 05/01/24 10:50 Allergies Allergy/AdvReac Type Severity Reaction Status Date / Time No Known Allergies Allergy Verified 05/01/24 12:15 Home Medications ?Medication ?Instructions ?Recorded ?Confirmed ?Type tranexamic acid 650 mg tablet 1,300 mg (2 x 650 mg) PO TID 5 04/27/24 05/01/24 Rx days #30 tabs drospirenone 3 mg-estetrol 14.2 mg 1 tablet PO DAILY 04/30/24 05/01/24 History (28) tablet (Nextstellis) Laboratory Tests 05/01/24 12:16 POC Urine HCG, Qual Negative (Negative) Patient hx anesthesia problems: none Family hx anesthesia problems: none Results Review: All pre-operative results and documents have been reviewed as part of the pre- operative evaluation. FOR[facility]LY [facility], [facility] Past Medical History Medical History (Updated 05/01/24 @ 12:43 by Nickolas Mendoza MD) Overweight Family History Family History Mother Family history of attention deficit hyperactivity disorder (ADHD) Sibling Family history of attention deficit hyperactivity disorder (ADHD) Social History Social History Smoking status: Never smoker Alcohol intake: current Drinks per week: 1 Living arrangements: with family Additional living arrangements comments: SPOUSE AND 2 CHILDREN Spiritual care concerns: No Anes - Eval Final PreProcedure Day of Procedure 05/01/24 12:43 Patient weight: overweight Heart: regular rate and rhythm Lungs: clear to auscultation Airway: Mallampati scale class II Neurological: alert and oriented Last oral intake: >/= 8 hours ASA classification: II Emergent: no Anesthetic plan: proceed Anesthesia type and monitoring: general GIVS and standard monitoring Results Review: All pre-operative results and documents have been reviewed as part of the pre- operative evaluation. Informed Consent: The patient's anesthetic plan and its attendant risks and benefits were di scussed with the patient/family/POA. Questions were solicited and answers provided to the satisfaction of the patient/family/POA.
[2024-05-01] MEDS: LIDOCAINE 1% LOCAL INJ 10 ML VIAL INFILTRATE (13:50)
[2024-05-01 14:08] VITALS: BP 122/82; PULSE 72; RESP 18; O2SAT 100
--- NOTE | 2024-05-01 14:12 | W.PM.PROC2 ---
Procedure Note - Detailed Date of Procedure 05/01/24 Pre-op Diagnosis Menometrorrhagia Post-op Diagnosis Same Procedure Performed Hysteroscopy Dilation and sharp curettage Surgeon Alex Louie MD Anesthesia MAC and Local (1% lidocaine) Findings Normal-appearing endometrial cavity. Both tubal ostia seen. Description of Procedure The patient was taken to the operating room where she was prepared and draped in the usual sterile fashion in the dorsal lithotomy position. The bladder was drained with a red rubber catheter. A sterile speculum was placed into the vagina. The anterior lip of the cervix was grasped with single-tooth tenaculum. Ten mL of 1% lidocaine was administered in a paracervical block. The cervix was then gently dilated using Hegar dilators until a 7 mm dilator could be passed. Hysteroscopy was performed using sterile saline as a distention medium. Findings are as noted above. Sharp curettage was then performed, and endometrial curettings were collected on a Telfa pad and passed off to be sent to pathology. Hemostasis was excellent. Sponge, lap, needle and instrument counts were correct. The patient was awakened and taken to the recovery room in stable condition. I was present and scrubbed through the entire procedure. Estimated Blood Loss 5 Drains No Packing No Pathology Yes (Endometrial curettings) Complications None Condition Stable Disposition PACU
[2024-05-01] MEDS: KETOROLAC 15 MG/ML VIAL (*BKC) IV PUSH (14:15)
[2024-05-01 14:30] VITALS: BP 117/75; PULSE 68; RESP 18; O2SAT 100
[2024-05-01] MEDS: fentaNYL CITRATE INJ (*CRX) 100 MCG/2 ML VIAL 25 MCG IV PUSH (14:30)
[2024-05-01] MEDS: oxyCODONE HCL (*CRX) 5 MG TAB IR PO (14:57)
[2024-05-01 15:00] VITALS: BP 120/74; PULSE 63; RESP 18
[2024-05-01 15:30] VITALS: BP 113/56; PULSE 60; RESP 16
== END 2024-05-01 15:35 | disposition home or self-care (01) ==
PROVIDERS: Visit Provider Obstetrics & Gynecology
PROC: 0U5B8ZZ Destruction of Endometrium, Via Natural or Artificial Opening Endoscopic (ICD-10-PCS; CPT 58563; principal; 2024-05-01 13:30)
DX: N92.1 Excessive and frequent menstruation with irregular cycle (principal); N85.01 Benign endometrial hyperplasia; G89.18 Other acute postprocedural pain
CPT/HCPCS: 58558; 88305; A9270; J1885; J2003; J2250; J2704; J3010; J7120

== ENCOUNTER 2024-08-01 00:59 | Day surgery (SDC) | payer BC, OTHER, SELFPAY ==
[2024-07-23 11:43] VITALS: BMI 28.3
--- NOTE | 2024-07-23 11:49 | PC.NURSE ---
Report to the Outpatient Waiting Room, entrance under the green pavilion located off [facility], at time _0900_ on date _[id number]_. Planned Procedure Time: _1100_.? Time changes happen often and if your time is changed the preop area will call you the afternoon before. - You and your visitor will be asked to self-screen and do not enter if you have any COVID symptoms. Please call surgeon if you need to reschedule. - A mask is optional within the hospital at this time. Patients may have clear liquids (water, carbonated beverages, clear teas, apple juice) until 3 hours prior to surgery with a maximum of 20 ounces. - No food from midnight until time of surgery and no smoking, or chewing tobacco (or any form of nicotine). No chewing gum, candy or mints. Take only the following medications with a SIP of water on the morning of surgery: ___None____ DO NOT STOP ANY OF YOUR OTHER PRESCRIPTION MEDICATIONS PRIOR TO SURGERY EXCEPT THE FOLLOWING Hold all vitamins and supplements for 3 days per anesthesiologist. Medications to discontinue per physician ___Check with Dr Louie about need to hold Ibuprofen.____ Date to take last dose Please no make-up, nail kiswahili, hairspray, perfume, deodorant, or body powder the day of surgery.? No jewelry (including any body piercings) or valuables the day of surgery, leave them at home.? Please take a shower or bath the night before, or the morning of, surgery with an antibacterial soap.? Wear comfortable, loose fitting clothing.? - Jewelry must be removed prior to entering the operating room.? Rings and piercings that are not removed may be cut off. - The hospital will not accept responsibility for valuables.? - Please leave all valuables, including medications, at home the day of surgery. If you are going home after surgery, a licensed otr company driver must drive you home.? - NO public transportation without another adult if you receive anesthesia. - We recommend that an adult stay with you for 24 hours following discharge. - We also recommend that you do not drive, make important decision, drink alcoholic beverages, or take any drugs that were not prescribed by your health care provider for at least 24 hours after your discharge time. Follow any additional instructions given to you from your surgeon. Telephone instructions given to __Suad___and asked if any additional questions and then verbalized understanding. Patient advised to call surgeon office or pre surgery nurse liaison [phone] if any additional questions.
[2024-08-01] VITALS (10 sets, daily range): BP systolic 100–125; BP diastolic 62–83; PULSE 58–92; RESP 14–25; TEMP 36.1–36.6; O2SAT 95–100; BMI 29.1
--- OUTSIDE RECORDS SUMMARY | 2024-08-01 01:03 | XMS_ITS | Clinical Summary ---
Author Organization [facility] Address On license of [facility] [place] [address] Care Team Providers Care Diaper Machine Tender Name Role Phone Francisco Polanco Primary Care Provider [phone] Allergies No known active allergies Medications fluticasone propionate (FLONASE) 50 MCG/ACT nasal sprayIndication s:Non-recurrent acute serous otitis media of left ear 1 spray by Nasal route daily. 16 g Active Additional Information Patient not taking.Reported on 03/27/2024 Active Problems Problem Noted Date Diagnosed Date Chronic pain of both knees 08/07/2023 Immunizations Name Administration Dates Next Due Influenza [...] Comments Blood Pressure 133/89 03/27/2024 8:21 AM MANAGER ONCOLOGY Pulse 82 03/27/2024 8:21 AM MANAGER ONCOLOGY Temperature 36.5 C (97.7 F) 03/27/2024 8:21 AM MANAGER ONCOLOGY Respiratory Rate 20 03/27/2024 8:21 AM MANAGER ONCOLOGY Oxygen Saturation 97% 03/27/2024 8:21 AM MANAGER ONCOLOGY Inhaled Oxygen Concentration - - Weight 74.8 kg (165 lb) 03/27/2024 8:21 AM MANAGER ONCOLOGY Height 160 cm (5' 3 ) 03/27/2024 8:21 AM MANAGER ONCOLOGY Body Mass Index 29.23 03/27/2024 8:21 AM MANAGER ONCOLOGY Plan of Treatment Health Maintenance Due Date Last Done Comments Cervical Cancer Screening Pa p Smear (Age 30 to 64) Every 3 Years 1989 Hepatitis B Vaccines (1 of 3 - 19+ 3-dose series) 2008 Cervical Cancer Screening Pa p with HPV Testing (Age 30 to 64) Every 5 Years 08/14/2019 Cervical Cancer Screening with HPV 08/14/2019 COVID-19 Vaccine ( - 2023-2 5 season) 2023 PHQ-2 (Physician [place]) 04/24/2024 07/26/2023 Annual Physical 07/25/2024 07/26/2023 DTaP, Tdap and Td Vaccines ( 3 - Td or Tdap) 09/23/2028 09/23/2018, 11/19/2015 Hepatitis C 07/25/2053 Postponed from 08/14/2007 (Patient Refused) HPV Vaccines Aged Out No longer eligi ble based on patient's age to complete this topic Meningococcal B Vaccine Aged Out No l onger eligible based on patient's age to complete [...] patient's age to complete this topic Insurance [facility] Care Teams Diaper Machine Tender Relationship Specialty [place] [address] [place] [address] PCP - General Physician Director Emergency Department Medical 07/19/23
[2024-08-01] MEDS: LACTATED RINGERS 1,000 ML 30 ML IV CONT ×2 (10:18→12:40)
[2024-08-01] MEDS: ACETAMINOPHEN 500 MG TABLET 1000 MG PO (10:18)
[2024-08-01] MEDS: KETOROLAC 15 MG/ML VIAL (*BKC) IV PUSH (10:18)
[2024-08-01 10:19] LABS: BEDSIDEPREGUCG Negative (Negative)
--- NOTE | 2024-08-01 10:32 | P.PNAN_ITS ---
Anes - Initial Pre Proc Eval Procedure: Operation Date: 08/01/24 11:00 Proposed Procedures p Laparoscopic Bilateral Salpingectomy, Hysteroscopy, Dilatation and Curettage, Le Endometrial Ablation - Alex Louie MD Date/Time: 08/01/24 10:32 Surgeon: Alex Louie MD Pre Op Diagnosis: desires sterilization, heavy bleeding Patient Data Age: 33 Gender: F Height: 1.6 m Weight: 74.6 kg Last Vital Signs Temp 97.9 F 08/01/24 10:14 Pulse 62 08/01/24 10:14 BP 125/83 08/01/24 10:14 Pulse Ox 100 08/01/24 10:14 O2 Del Method Room Air 08/01/24 10:14 Allergies Allergy/AdvReac Type Severity Reaction Status Date / Time No Known Allergies Allergy Verified 08/01/24 10:12 Home Medications ?Medication ?Instructions ?Recorded ?Confirmed ?Type ibuprofen 600 mg tablet 600 mg PO Q6H PRN cramps #30 tabs 05/01/24 07/23/24 Rx Laboratory Tests 08/01/24 10:14 POC Urine HCG, Qual Negative (Negative) Patient hx anesthesia problems: none Family hx anesthesia problems: none Results Review: All pre-operative results and documents have been reviewed as part of the pre- operative evaluation. [facility] Past Medical History Medical History Overweight Family History Family History Mother Family history of attention deficit hyperactivity disorder (ADHD) Sibling Family history of attention deficit hyperactivity disorder (ADHD) Social History Social History Smoking status: Never smoker Alcohol intake: current Drinks per week: 1 Living arrangements: with family Additional living arrangements comments: SPOUSE AND 2 CHILDREN Spiritual care concerns: No Anes - Eval Final PreProcedure Day of Procedure 08/01/24 10:32 Patient weight: normal Lungs: normal air movement Airway: Mallampati scale class II Neurological: alert and oriented Last oral intake: >/= 8 hours ASA classification: II Emergent: no Anesthetic plan: proceed Anesthesia type and monitoring: general ETT and standard monitoring Results Review: All pre-operative results and documents have been reviewed as part of the pre- operative evaluation. Healthy pt. Informed Consent: The patient's anesthetic plan and its attendant risks and benefits were discussed with the patient/family/POA. Questions were solicited and answers provided to the satisfaction of the patient/family/POA.
--- NOTE | 2024-08-01 11:07 | PM.IMHP ---
H&P: HPI History of Present Illness Date/Time: 08/01/24 11:07 Chief Complaint: Heavy periods Narrative: 33 y/o with menometrorrhagia. She has completed childbearing and desires surgical management. Review of Systems Review of Systems: All systems reviewed & are unremarkable except as noted in HPI and below PMFSH Past Medical History Medical History Overweight Surgical History Surgical History History of D&C Family History Family History Mother Family history of attention deficit hyperactivity disorder (ADHD) Sibling Family history of attention deficit hyperactivity disorder (ADHD) Social History Social History Smoking status: Never smoker Alcohol intake: current Drinks per week: 1 Living arrangements: with family Additional living arrangements comments: SPOUSE AND 2 CHILDREN Spiritual care concerns: No Meds Home Medications and Allergies Home Medications ?Medication ?Instructions ?Recorded ?Confirmed ?Type ibuprofen 600 mg tablet 600 mg PO Q6H PRN cramps #30 tabs 05/01/24 07/23/24 Rx Allergies Allergy/AdvReac Type Severity Reaction Status Date / Time No Known Allergies Allergy Verified 08/01/24 10:12 Vital Signs Vital Signs - 24 hr 08/01/24 10:14 Temperature 36.6 C Pulse Rate 62 Blood Pressure 125/83 Pulse Oximetry 100 Oxygen Delivery Room Air Exam Const: Orientation/consciousness: patient oriented x3 Other: Well-developed, well-nourished female in no acute distress. Neck: Thyroid: thyroid normal Lymphatic: no lymphadenopathy noted (in neck, axilla or inguinal nodes) Resp: Effort & Inspection: normal respiratory effort Auscultation: clear to auscultation bilaterally Cardio: Rate: regular rate Rhythm: regular rhythm Heart sounds: S1 normal heart sound present and S2 normal heart sound present GI: Other: ABD: Soft, nontender, nondistended. No guarding or rebound tenderness. No hepatosplenomegaly. : General: Yes no CVA tenderness Other: External genitalia: normal female hair distribution, without lesion. Urethral meatus: no lesion, non prolapsed. Bladder: no mass, nontender Vagina: well-estrogenized, without lesion or discharge. No cystocele or rectocele. Cervix: no lesion or discharge. Uterus: small, anteverted, freely mobile, nontender Adnexa: no mass or tenderness. Anus/perineum: no lesions, nontender Back/Spine/Pelvis: Back: no CVA tenderness Skin: General skin exam: normal color and no rashes or lesions noted Neuro: General: patient oriented x3 Extrem: Other: Extremities: nontender with no edema Psych: Mental Status: mental status grossly normal Affect: normal affect Assessment and Plan Assessment and plan (1) Menometrorrhagia: Code(s): N92.1 - Excessive and frequent menstruation with irregular cycle Status: Acute (2) Unwanted fertility: Code(s): Z30.09 - Encounter for other general counseling and advice on contraception Status: Acute Assessment and Plan: A: Menometrorrhagia with desired sterility. P: Have reviewed medical as well as surgical management options. She desires laparoscopic bilateral salpingectomies, hysteroscopy, dilation and sharp curettage, and endometrial ablation. She understands there are temporary methods of contraception available to her. She understands that there are nonsurgical options as well as surgical options. She understands that bilateral salpingectomy will render her permanently sterile. She understands that there is a failure rate associated with tubal sterilization, as well as an inherent ectopic gestation risk. Furthermore, she understands risks of surgery to include risks of anesthesia, risks of pain, infection, bleeding, blood products, thromboembolic phenomena and damage to adjacent structures such as bowel, bladder, ureters, blood vessels and nerves. She understands all these risks and elects to proceed with surgery.
--- NOTE | 2024-08-01 11:10 | WPDHPUPDATE1 ---
History and Physical Update Update Date/Time: 08/01/24 11:10 History and Physical has been reviewed, including an updated exam of the patient. There are NO changes in the patient's condition. Risks, benefits, and alternatives have been discussed and questions answered. Patient agrees to proceed with procedure.
[2024-08-01] MEDS: LIDOCAINE 1% LOCAL INJ 10 ML VIAL INFILTRATE (11:35)
--- NOTE | 2024-08-01 12:06 | W.PM.PROC2 ---
Procedure Note - Detailed Date of Procedure 08/01/24 Pre-op Diagnosis Menometrorrhagia Desired sterility Post-op Diagnosis Same Procedure Performed Laparoscopic bilateral salpingectomies Hysteroscopy Dilation and sharp curettage Endometrial ablation Surgeon Alex Louie MD Anesthesia General and Local (1% lidocaine) Findings Normal-appearing uterus, tubes, ovaries, bilateral round and uterosacral ligaments, anterior and posterior cul de sac. On hysteroscopy, both tubal ostia were seen and the endometrial cavity was unremarkable. Description of Procedure The patient was taken to the operating room where general endotracheal anesthesia was administered. She was prepared and draped in the usual sterile fashion in dorsal lithotomy position. The bladder was drained with a red rubber catheter. A sterile speculum was placed into the vagina. The anterior lip of the cervix was grasped with a single-tooth tenaculum. The acorn uterine manipulator was placed. The speculum was withdrawn. Gloves were changed and attention was turned the abdomen. An infraumbilical skin incision was made with a scalpel. The abdomen was tented and a 5mm bladeless trocar was advanced under direct laparoscopic visualization. Pneumoperitoneum was administered using carbon dioxide gas. A survey of the pelvis and abdomen revealed the findings noted above. Additional 5 mm incisions were made in the right and the left lower quadrants, and 5 mm ports were advanced using bladeless trocars under direct laparoscopic visualization. The Fallopian tube on the right side was grasped and elevated and dissected off the ovary using the Ligasure. The tube was then amputated from the uterus and passed off to be sent to pathology. The left tube was similarly dissected free and excised. Hemostasis was excellent. The ports were withdrawn. The gas was allowed to escape. The skin incisions were reapproximated using interrupted subcuticular sutures of 4 0 Vicryl. Dermaflex was applied externally. Attention was redirected to the vagina, where the acorn manipulator was withdrawn and the speculum reintroduced. Ten mL of 1% lidocaine was administered in a paracervical block. The cervix was then gently dilated using Hegar dilators until an 8 mm dilator could be passed. Hysteroscopy was performed using sterile saline as a distention medium. Findings are as noted above. Sharp curettage was then performed, and endometrial curettings were collected on a Telfa pad and passed off to be sent to pathology. Finally, the the Le device was advanced and endometrial ablation commenced without difficulty. The device was withdrawn and a second look was taken using the hysteroscope. Excellent coverage of the endometrial cavity was noted. The tenaculum was removed. Hemostasis was excellent. Sponge, lap, needle and instrument counts were correct. The patient was awakened and taken to the recovery room in stable condition. I was present and scrubbed through the entire procedure.. Estimated Blood Loss 50 Drains No Packing No Pathology Yes (Endometrial curettings) Complications None Condition Stable Disposition PACU
[2024-08-01] MEDS: fentaNYL CITRATE INJ (*CRX) 100 MCG/2 ML VIAL 25 MCG IV PUSH ×4 (12:28→12:50)
[2024-08-01] MEDS: oxyCODONE HCL (*CRX) 5 MG TAB IR PO (13:29)
== END 2024-08-01 14:15 | disposition home or self-care (01) ==
PROVIDERS: Visit Provider Obstetrics & Gynecology
PROC: 0UDB8ZZ Extraction of Endometrium, Via Natural or Artificial Opening Endoscopic (ICD-10-PCS; CPT 58558; principal; 2024-08-01 11:00)
DX: N92.1 Excessive and frequent menstruation with irregular cycle (principal); Z30.2 Encounter for sterilization
CPT/HCPCS: 58661; 58563; 88302; 88305; A9270; J1100; J1885; J2003; J2250; J2405; J2704; J3010; J7120

== ENCOUNTER 2025-04-02 00:26 | Day surgery (SDC) | payer BC, OTHER, SELFPAY ==
[2025-03-28 10:46] VITALS: BMI 28.3
--- NOTE | 2025-03-28 10:50 | SUR.PREOP ---
[facility] has started construction of its new state of the art ER which will open Spring 2026. With this, we anticipate parking may be a challenge for some our surgical patients and families. Parking spaces are limited but are available for all Surgical, obstetrics, and ER patients sharing this lot. If you arrive and find you are having a hard time finding a parking space, please note that we understand the challenges, please drive around the hospital and park near Hospital Entrance 1. When you enter this entrance, you can ask a volunteer to direct or take you back to the surgical waiting area to check in. We appreciate everyone?s understanding of these expected challenges while we build for your future. Report to the Outpatient Waiting Room, entrance under the green pavilion located off [address], at time 1200 on date 04/02/25. Planned Procedure Time: 1400.? Time changes happen often and if your time is changed the preop area will call you the afternoon before. - You and your visitor will be asked to self-screen and do not enter if you have any COVID symptoms. Please call surgeon if you need to reschedule. - A mask is optional within the hospital at this time. Patients may have clear liquids (water, carbonated beverages, clear teas, apple juice) until 3 hours prior to surgery with a maximum of 20 ounces. - No food from midnight until time of surgery and no smoking, or chewing tobacco (or any form of nicotine). No chewing gum, candy or mints. - Infants may have breast milk until 4 hours before surgery, formula 6 hours prior to surgery. - Children will be allowed to drink immediately following surgery.? If applicable, please bring a bottle or sippy cup to assist with drinking. Juice, water, soda, and popsicles are readily available.? For infants on formula, please bring formula the day of surgery.? Pacifiers are allowed. Take only the following medications with a SIP of water on the morning of surgery: n/a DO NOT STOP ANY OF YOUR OTHER PRESCRIPTION MEDICATIONS PRIOR TO SURGERY EXCEPT THE FOLLOWING Hold all vitamins and supplements for 3 days per anesthesiologist. Medications to discontinue per physician n/a Date to take last dose Please no make-up, nail romansh, hairspray, perfume, deodorant, or body powder the day of surgery.? No jewelry (including any body piercings) or valuables the day of surgery, leave them at home.? Please take a shower or bath the night before, or the morning of, surgery with an antibacterial soap.? Wear comfortable, loose fitting clothing.? Children are encouraged to wear pajamas. - Jewelry must be removed prior to entering the operating room.? Rings and piercings that are not removed may be cut off. - The hospital will not accept responsibility for valuables.? - Please leave all valuables, including medications, at home the day of surgery. If you are going home after surgery, a licensed commercial driver's license driver must drive you home.? - NO public transportation without another adult if you receive anesthesia. - We recommend that an adult stay with you for 24 hours following discharge. - We also recommend that you do not drive, make important decision, drink alcoholic beverages, or take any drugs that were not prescribed by your health care provider for at least 24 hours after your discharge time. For Pediatric surgeries, we recommend two adults accompany the child home. Follow any additional instructions given to you from your surgeon. Telephone instructions given to _patient_and asked if any additional questions and then verbalized understanding. Patient advised to call surgeon office or pre surgery nurse liaison [phone] if any additional questions.
[2025-04-02] VITALS (8 sets, daily range): BP systolic 102–136; BP diastolic 66–86; PULSE 56–101; RESP 14–20; TEMP 36.5–37.2; O2SAT 97–100; BMI 28.8
--- NOTE | 2025-04-02 10:19 | P.HP_ITS ---
H&P: HPI History of Present Illness Date/Time: 04/02/25 10:19 Chief Complaint: Persistent heavy bleeding Narrative: 34 y/o who has had a tubal ligation and an endometrial ablation. Menses are mostly monthly, lasting 7-8 days, sometimes needing super tampons. Also, cramping has been getting worse over the last few months. Ultrasound exam showed a small right ovarian cyst, and was otherwise unremarkable. Review of Systems Review of Systems: All systems reviewed & are unremarkable except as noted in HPI and below PMFSH Past Medical History Medical History Overweight Surgical History Surgical History Hx of tubal ligation History of endometrial ablation History of D&C Family History Family History Mother Family history of attention deficit hyperactivity disorder (ADHD) Sibling Family history of attention deficit hyperactivity disorder (ADHD) Grandparent Breast cancer Social History Social History Smoking status: Never smoker Alcohol intake: current Drinks per week: 1 Substance use: never Living arrangements: with family Additional living arrangements comments: SPOUSE AND 2 CHILDREN Spiritual care concerns: No Meds Home Medications and Allergies Home Medications ?Medication ?Instructions ?Recorded ?Confirmed ?Type No Home Medications 03/11/25 03/28/25 H istory Allergies Allergy/AdvReac Type Severity Reaction Status Date / Time No Known Allergies Allergy Verified 03/28/25 10:51 Exam Const: Orientation/consciousness: patient oriented x3 Other: Well-developed, well-nourished female in no acute distress. Neck: Thyroid: thyroid normal Lymphatic: no lymphadenopathy noted (in neck, axilla or inguinal nodes) Resp: Effort & Inspection: normal respiratory effort Auscultation: clear to auscultation bilaterally Cardio: Rate: regular rate Rhythm: regular rhythm Heart sounds: S1 normal heart sound present and S2 normal heart sound present GI: Other: ABD: Soft, nontender, nondistended. No guarding or rebound tenderness. No hepatosplenomegaly. : General: Yes no CVA tenderness Other: External genitalia: normal female hair distribution, without lesion. Urethral meatus: no lesion, non prolapsed. Bladder: no mass, nontender Vagina: well-estrogenized, without lesion or discharge. No cystocele or rectocele. Cervix: no lesion or discharge. Uterus: small, anteverted, freely mobile, nontender Adnexa: no mass or tenderness. Anus/perineum: no lesions, nontender Back/Spine/Pelvis: Back: no CVA tenderness Skin: General skin exam: normal color and no rashes or lesions noted Neuro: General: patient oriented x3 Extrem: Other: Extremities: nontender with no edema Psych: Mental Status: mental status grossly normal Affect: normal affect Assessment and Plan Assessment and plan (1) Menometrorrhagia: Code(s): N92.1 - Excessive and frequent menstruation with irregular cycle Status: Acute Assessment and Plan: A: Menometrorrhagia with dysmenorrhea, refractory to conservative management. P: The patient is ready for definitive management. I have offered her a robotic assisted total vaginal hysterectomy, with possible right ovarian cystectomy and possible right oophorectomy. I suspect will be leaving the ovary in situ. She understands risks of surgery to include risks of anesthesia, risks of pain, infection, bleeding, blood products, thromboembolic phenomena and damage to adjacent structures such as bowel, bladder, ureters, blood vessels and nerves. She understands that hysterectomy will render her permanently sterile. She understands all these risks and elects to proceed with surgery. (2) Dysmenorrhea: Code(s): N94.6 - Dysmenorrhea, unspecified Status: Acute
[2025-04-02] MEDS: ACETAMINOPHEN 500 MG TABLET 1000 MG PO ×2 (12:45→17:59)
[2025-04-02] MEDS: KETOROLAC 15 MG/ML VIAL (*BKC) IV PUSH (12:45)
[2025-04-02] MEDS: SCOPOLAMINE 1 MG PATCH 1 PATCH TRANSDERM (13:33)
[2025-04-02 13:34] LABS: BEDSIDEPREGUCG Negative (Negative)
[2025-04-02] MEDS: LACTATED RINGERS 1,000 ML 30 ML IV CONT ×2 (13:34→15:22)
--- NOTE | 2025-04-02 13:49 | WPDHPUPDATE1 ---
History and Physical Update Update Date/Time: 04/02/25 13:49 History and Physical has been reviewed, including an updated exam of the patient. There are NO changes in the patient's condition. Risks, benefits, and alternatives have been discussed and questions answered. Patient agrees to proceed with procedure.
--- NOTE | 2025-04-02 13:53 | P.PNAN_ITS ---
Anes - Initial Pre Proc Eval Procedure: Operation Date: 04/02/25 14:00 Proposed Procedures p Robotic Assisted Total Vaginal Hysterectomy with Bilateral Salpingectomy - Alex Louie MD Date/Time: 04/02/25 13:53 Surgeon: Alex Louie MD Pre Op Diagnosis: Menometrorrhagia, Rt Complex Ovarian Cyst Patient Data Age: 34 Gender: F Height: 1.6 m Weight: 73.7 kg Last Vital Signs Temp 97.9 F 04/02/25 13:30 Pulse 77 04/02/25 13:30 Resp 16 04/02/25 13:30 BP 125/77 04/02/25 13:30 Pulse Ox 100 04/02/25 13:30 O2 Del Method Room Air 04/02/25 13:30 Allergies Allergy/AdvReac Type Severity Reaction Status Date / Time No Known Allergies Allergy Verified 04/02/25 13:29 Home Medications ?Medication ?Instructions ?Recorded ?Confirmed ?Type No Home Medications 03/11/25 03/28/25 H istory Laboratory Tests 04/02/25 04/02/25 12:38 13:30 POC Urine HCG, Qual Negative (Negative) Blood Type A Positive Antibody Screen Negative Patient hx anesthesia problems: none Family hx anesthesia problems: none Results Review: All pre-operative results and documents have been reviewed as part of the pre- operative evaluation. [facility] Past Medical History Medical History Overweight (BMI 25.0-29.9) Anxiety Dysmenorrhea Overweight Surgical History Surgical History Hx of tubal ligation History of endometrial ablation History of D&C Family History Family History Mother Family history of attention deficit hyperactivity disorder (ADHD) Sibling Family history of attention deficit hyperactivity disorder (ADHD) Grandparent Breast cancer Social History Social History Smoking status: Never smoker Alcohol intake: current Drinks per week: 1 Substance use: never Living arrangements: with family Additional living arrangements comments: SPOUSE AND 2 CHILDREN Spiritual care concerns: No Anes - Eval Final PreProcedure Day of Procedure 04/02/25 13:53 Patient weight: overweight Heart: regular rate and rhythm Lungs: clear to auscultation Airway: Mallampati scale class II Neurological: alert and oriented Last oral intake: >/= 8 hours ASA classification: II Emergent: yes Anesthetic plan: proceed Anesthesia type and monitoring: general ETT and standard monitoring Results Review: All pre-operative results and documents have been reviewed as part of the pre- operative evaluation. Informed Consent: The patient's anesthetic plan and its attendant risks and benefits were discussed with the patient/family/POA. Questions were solicited and answers provided to the satisfaction of the patient/family/POA.
[2025-04-02] MEDS: ceFAZolin 2 GM in SODIUM CHLORIDE 0.9% IV 50 ML 100 ML IVPB (14:01)
--- NOTE | 2025-04-02 14:41 | S_PTH ---
PATIENT: Suad Somers LOC: [facility] U#:[id number] AGE/SX: 34/F ROOM: RE04/02/[address]: Alex Louie MD : 1990 BED: DIS: 04/03/2025 SPEC #: [id number] RECD: 04/03/25 08:57 STATUS: JESSIKA REMalka #: [id number] JH: 04/02/25 14:[address]: Alex Louie DEPT: [facility] Surgical RECD BY: Norah Johnson ENTERED: 04/03/25 08:57 SP TYPE: Surgical OTHR DR: DEVELOPMENT SPEC PHYSICIAN Tissues: A - Uterus Procedures: Hematoxylin and Eosin Stain Gross and Microscopic Level 5
--- NOTE | 2025-04-02 15:13 | W.PM.PROC2 ---
Procedure Note - Detailed Date of Procedure 04/02/25 Pre-op Diagnosis Menometrorrhagia Dysmenorrhea Post-op Diagnosis Same Procedure Performed Robotic assisted total vaginal hysterectomy Surgeon Alex Louie MD Anesthesia General Findings The uterus was enlarged. Both ovaries were normal-appearing. Proximal tubal remnants were seen. The anterior and posterior cul de sac, bilateral round and uterosacral ligaments were all unremarkable. Description of Procedure The patient was taken to the operating room where general endotracheal anesthesia was administered. She was prepared and draped in the usual sterile fashion in the dorsal lithotomy position. The bladder was drained with Viramontes catheter. The cervix was visualized and the anterior lip was grasped using a single-tooth tenaculum. The cervix was gently dilated using Hegar dilators. The LAUREL 2 uterine manipulator was then placed and the tenaculum was removed. Gloves were changed and attention was turned to the abdomen. A supraumbilical skin incision was made with the scalpel. The Veress needle was advanced and pneumoperitoneum was administered using carbon dioxide gas. The bladeless trocar was then advanced. Intraperitoneal placement was confirmed using the laparoscope. Lateral ports and an instructional assistant port were all placed using bladeless trocars under direct laparoscopic visualization. She was placed in Trendelenburg position and the patient cart was docked. I assumed the console. The ureters were visualized bilaterally. The round ligament on the right was divided. The uteroovarian ligament was divided. The broad ligament was divided, skeletonizing the uterine artery on the right. The bladder was reflected away. The left side was similarly dissected. Colpotomy was performed circumferentially. The specimen was removed and passed off to be sent to pathology. The vaginal cuff was reapproximated using 0 Vicryl in interrupted [id number] fashion. The pelvis was irrigated copiously using warmed normal saline. Rigorous hemostasis was assured. HemaDerm was applied to the vaginal cuff. The pedicles were inspected once again. The ports were then withdrawn and the gas was allowed to escape. The skin incisions were reapproximated using 4 0 Monocryl in interrupted subcuticular fashion. Dermaflex was applied externally. Sponge, lap, needle and instrument counts were correct. The patient was awakened and taken to the recovery room in stable condition. I was present and scrubbed through the entire procedure. Implants None Estimated Blood Loss 50 Drains Yes (Viramontes) Packing No Pathology Yes (Uterus, cervix) Complications None Condition Stable Disposition PACU [facility] Billing Surgery - Charge Forward: Surgery Billing
--- NOTE | 2025-04-02 15:15 | P.DS_ITS ---
DS: Admitting Diagnosis Discharge Date 04/03/25 Admitting Diagnosis Menometrorrhagia Dysmenorrhea DS: Discharge Diagnosis Discharge Diagnosis (1) Menometrorrhagia: Code(s): N92.1 - Excessive and frequent menstruation with irregular cycle Status: Acute (2) Dysmenorrhea: Code(s): N94.6 - Dysmenorrhea, unspecified Status: Acute DS: Summary Hospital Course Hospital Course: She was admitted for scheduled surgery. She underwent robotic assisted TVH. Postop she did well. She tolerated a regular diet and was voiding without difficulty. She was able to go home on POD1. Time Spent with Patient Time attestation: Total time spent providing and/or coordinating discharge services: DS: Data Data Completed and Pending Pending studies at discharge: Pending at discharge 04/02/25 14:41 Surgical [PTH] Routine Labs on day of discharge: Labs from last 24 hours 04/02/25 04/02/25 13:30 12:38 POC Urine HCG, Qual Negative Blood Type A Positive Antibody Screen Negative Discharge Plan Discharge Patient Disposition: Home Discharge Instructions: Nothing in the vagina for 6 weeks. Call or return if temperature above 100.4? F, increased abdominal pain, increased vaginal bleeding or any new problems. Patient Language: Polish Stand Alone Forms: General Discharge Instructions Follow-up/Referrals: Alex Louie MD [Physician, MAINTENANCE TECHNICIAN 2ND SHIFT] - 2 Weeks Discharge Medications: New oxycodone-acetaminophen [Endocet] 5-325 mg tablet 1 - 2 tablet PO Q6H PRN (Reason: pain) Qty: 30 0RF
[2025-04-02] MEDS: fentaNYL CITRATE INJ (*CRX) 100 MCG/2 ML VIAL 25 MCG IV PUSH ×4 (15:39→15:57)
--- NOTE | 2025-04-02 16:40 | OBPPTRN ---
Patient transferred to post room #283 via bed. Support person present. Oriented to unit, room, information board, and admission packet. Patient verbalizes understanding.
[2025-04-02] MEDS: DEXTROSE 5%/0.45% SOD CHL 1,000 ML 125 ML IV CONT (17:08)
[2025-04-02] MEDS: MORPHINE SULFATE (*CRX) 4 MG/ML INJ IV PUSH (17:09)
[2025-04-02] MEDS: SIMETHICONE 80 MG TAB.CHEW PO (17:59)
[2025-04-02] MEDS: KETOROLAC 30 MG/ML VIAL (*BKC) IV PUSH (17:59)
[2025-04-02] MEDS: DOCUSATE SODIUM 100 MG CAPSULE PO (17:59)
[2025-04-02] MEDS: ENOXAPARIN 40 MG/0.4 ML SYRINGE SUB-Q (20:15)
[2025-04-03 00:30] VITALS: BP 113/67; PULSE 73; RESP 18; TEMP 36.6; O2SAT 98
[2025-04-03] MEDS: KETOROLAC 30 MG/ML VIAL (*BKC) IV PUSH ×2 (00:31→06:07)
[2025-04-03] MEDS: ACETAMINOPHEN 500 MG TABLET 1000 MG PO ×2 (00:31→06:06)
[2025-04-03 04:45] VITALS: BP 111/68; PULSE 91; RESP 15; TEMP 36.7; O2SAT 99
[2025-04-03 05:39] LABS: Hematocrit 39.6 % (37.0-47.0); Hemoglobin 13.2 g/dL (12.0-15.0); Immature Granulocyte Percent A 0.6 % (0-0.5); Lymphocytes Absolute Auto 1.11 K/mm3 (0.9-3.2); Mean Corpuscular HGB Conc 33.3 g/dl (32-36); Mean Corpuscular Hemoglobin 31.1 pg (26-34); Mean Corpuscular Volume 93.4 fl (80-100); Nucleated Red Blood Cells Absolute Auto 0.000 K/mm3 (0.0-0.012); Nucleated Red Blood Cells Perc 0.0 % (0.0-0.2); Platelet Count Result 309 k/mm3 (150-375); Red Blood Count 4.24 M/mm3 (4.2-5.4); White Blood Count 11.9 K/mm3 (4.5-10.0)
[2025-04-03 07:50] VITALS: BP 126/71; PULSE 76; RESP 16; TEMP 36.9; O2SAT 98
[2025-04-03] MEDS: DOCUSATE SODIUM 100 MG CAPSULE PO (08:34)
[2025-04-03] MEDS: SIMETHICONE 80 MG TAB.CHEW PO (08:34)
--- NOTE | 2025-04-03 09:38 | PM.GYNPNOP ---
[employer] - A/P Assessment and plan (1) Menometrorrhagia: Code(s): N92.1 - Excessive and frequent menstruation with irregular cycle Status: Acute Assessment and Plan: A: POD#1, doing well. P: Home to f/u 2 weeks in office. (2) Dysmenorrhea: Code(s): N94.6 - Dysmenorrhea, unspecified Status: Acute Postoperative Procedures: Procedures Operation Date: 04/02/25 14:00 Actual Procedure Side Surgeon p Robotic Assisted Total Vaginal Hysterectomy with Bilateral Salpingectomy Bilateral Alex Louie MD Time Spent With Patient Time: Total time spent is greater than 50% in coordination of care (as documented) at patient's floor/unit and/or counseling patient: Time with patient: less than 15 minutes [employer]- PN:Subj Post-Op Subjective Date/time seen: 04/03/25 09:38 Interval history: Pain OK. Tolerating diet. Voiding. Would like to go home. Exam Narrative: AVSS I/O OK ABD soft, nontender. Incisions c/d/i. EXT nontender [employer] - PN: Obj Data Vital Signs Vital Signs: Vital Signs - 24 hr 04/02/25 13:30 04/02/25 15:22 04/02/25 15:30 Temperature 97.9 F 97.7 F Pulse Rate 77 101 H 67 Respiratory Rate 16 20 14 Blood Pressure 125/77 102/74 132/68 Pulse Oximetry 100 100 97 Oxygen Delivery Room Air Simple Face Mask Room Air Oxygen Flow Rate 8 04/02/25 15:45 04/02/25 16:00 04/02/25 16:15 Temperature Pulse Rate 69 58 L 56 L Respiratory Rate 14 14 15 Blood Pressure 123/73 135/76 129/78 Pulse Oximetry 98 98 98 Oxygen Delivery Room Air Room Air Room Air Oxygen Flow Rate 04/02/25 16:40 04/02/25 16:40 04/02/25 20:08 Temperature 98.9 F 98.4 F Pulse Rate 61 68 Respiratory Rate 16 15 Blood Pressure 136/86 113/66 Pulse Oximetry 99 97 Oxygen Delivery Room Air Oxygen Flow Rate 04/03/25 00:30 04/03/25 04:45 04/03/25 07:20 Temperature 97.9 F 98.1 F Pulse Rate 73 91 Respiratory Rate 18 15 Blood Pressure 113/67 111/68 Pulse Oximetry 98 99 Oxygen Delivery Room Air Oxygen Flow Rate Intake/Output Intake/Output: Intake & Output 03/31/25 04/01/25 04/02/25 04/03/25 23:59 23:59 23:59 23:59 Intake Total 290 966.7 Output Total 2350 Balance 290 -1383.3 Meds/Results Medications: Active Medications Generic Name Dose Route Start Last Admin Trade Name Freq PRN Reason Stop Dose Admin Acetaminophen 1,000 mg 04/02/25 18:00 04/03/25 06:06 Acetaminophen 500 Mg Tablet PO 1,000 mg Q6HR DAYAN Administration Docusate Sodium 100 mg 04/02/25 17:00 04/03/25 08:34 Docusate Sodium 100 Mg Capsule PO 100 mg BID DAYAN Administration Enoxaparin Sodium 40 mg 04/02/25 21:00 04/02/25 20:15 Enoxaparin 40 Mg/0.4 Ml Syringe SUB-Q 40 mg DAILY DAYAN Administration Ibuprofen 600 mg 04/03/25 12:00 Ibuprofen 600 Mg Tablet PO Q6HR COUNT INCLUDES THE [facility] Metoclopramide HCl 10 mg 04/02/25 16:39 Metoclopramide Hcl Inj 10 Mg/2 Ml Vial IV PUSH Q6H PRN Nausea Morphine Sulfate 4 mg 04/02/25 16:39 04/02/25 17:09 Morphine Sulfate (*Crx) 4 Mg/Ml Inj IV PUSH 4 mg Q4H PRN Administration Breakthrough Pain Rated 7-10 or NPO Naloxone HCl 0.1 mg 04/02/25 16:39 Naloxone Hcl 0.4 Mg/Ml Vial IV PUSH Q2M PRN Respiratory rate less than 10 Ondansetron HCl 4 mg 04/02/25 16:39 Ondansetron Inj 4 Mg/2 Ml Vial IV PUSH Q6H PRN Nausea Oxycodone HCl 5 mg 04/02/25 16:39 Oxycodone Hcl (*Crx) 5 Mg Tab Ir PO Q4H PRN Pain Rated 4-6 Oxycodone HCl 10 mg 04/02/25 16:39 Oxycodone Hcl (*Crx) 5 Mg Tab Ir PO Q6H PRN Pain Rated 7-10 Simethicone 80 mg 04/02/25 17:00 04/03/25 08:34 Simethicone 80 Mg Tab.Chew PO 80 mg TIDWM DAYAN Administration Labs 04/03/25 04:40 Labs: Laboratory Results - last 24 hr 04/02/25 04/02/25 04/03/25 12:38 13:30 04:40 WBC 11.9 H RBC 4.24 Hgb 13.2 Hct 39.6 MCV 93.4 MCH 31.1 MCHC 33.3 RDW 11.7 Plt Count 309 MPV 9.8 Immature Gran % (Auto) 0.6 H Neut % (Auto) 80.9 H Lymph % (Auto) 9.3 L Rock % (Auto) 8.7 H Eos % (Auto) 0.0 Baso % (Auto) 0.5 Lymph # (Auto) 1.11 Rock # (Auto) 1.0 H Eos # (Auto) 0.0 Baso # (Auto) 0.1 Abs Immat Gran (auto) 0.07 H Absolute Neuts (auto) 9.6 H Absolute Nucleated RBC 0.000 Nucleated RBC % 0.0 POC Urine HCG, Qual Negative Blood Type A Positive Antibody Screen Negative
[2025-04-03 15:05] VITALS: BP 121/67; PULSE 81; RESP 16; TEMP 36.7; O2SAT 100
== END 2025-04-03 10:35 | disposition home or self-care (01) ==
LOC: ANHSURGERY 15:18 → ANHOB2 16:59
PROVIDERS: Visit Provider Obstetrics & Gynecology
PROC: (CPT 58552; principal; 2025-04-02 14:00)
DX: N92.1 Excessive and frequent menstruation with irregular cycle (principal); N94.6 Dysmenorrhea, unspecified; N88.8 Other specified noninflammatory disorders of cervix uteri; N88.0 Leukoplakia of cervix uteri
CPT/HCPCS: 58552; S2900; 36415; 85025; 86850; 86900; 86901; 88307; 99199; J0690; A9270; J1100; J1650; J1885; J2003; J2250; J2270; J2405; J2704; J3010; J7030; J7120